=== PATIENT | male | born 1935 | race Caucasian/White ===

== ENCOUNTER 2020-07-20 10:24 | Emergency (ER) | payer MEDICARE, BC ==
[2020-07-20] MEDS ORDERED: Sodium Chloride 0.9% 10 ML Syringe FLUSH PRN (10:29)
[2020-07-20] MEDS ORDERED: Labetalol 100 MG/20 ML MDV IVPUSH ONE (10:59)
--- NOTE | 2020-07-20 11:15 | EDM.PDOC ---
ED HPI GENERAL MEDICAL PROBLEM - General Chief Complaint: Neuro Symptoms/Deficits Stated Complaint: [facility] Time Seen by Provider: 07/20/20 10:29 Source of Information: Reports: Patient, EMS, Family History Limitations: Reports: Altered Mental Status - History of Present Illness INITIAL COMMENTS - FREE TEXT/NARRATIVE: The patient presents by [facility] for a possible stroke. The patient's last time known well was last night at 9pm. This morning he did not get up on time and his thought he was sleeping in and went to check on him after 9am and found him sitting on the floor. He may have fallen. He was confused and leaning to the left. He has left sided weakness. He is on aspirin but no other blood thinners. He has a history of Parkinson's disease. He has moderated left sided weakness and he is confused. He can talk but he is confused. He has no fever, cough or shortness of breath. Onset: Gradual Duration: Day(s): (last night at 9pm) Severity: Moderate Improves with: Reports: None Worsens with: Reports: None Associated Symptoms: Reports: No Other Symptoms Treatments BEATER BOSS: Reports: IV/IO, See EMS Report - Related Data Allergies Allergy/AdvReac Type Severity Reaction Status Date / Time No Known Allergies Allergy Verified 07/20/20 10:38 Home Meds: Home Meds Cholecalciferol (Vitamin D3) [Vitamin D3] 2,000 unit PO DAILY 03/29/14 [History] Lisinopril 5 mg PO DAILY 03/29/14 [History] Pantoprazole [ProTONIX] 40 mg PO DAILY 03/29/14 [History] Simvastatin [Zocor] 40 mg PO BEDTIME 03/29/14 [History] Metoprolol Succinate [Toprol XL 100mg] 75 mg PO BID 04/18/14 [History] Tamsulosin [Flomax] 0.4 mg PO BEDTIME 05/04/14 [History] Carbidopa/Levodopa [Sinemet 25-100 mg Tablet] 1 each PO BID 10/10/16 [History] Citalopram [Celexa] 20 mg PO 1200 10/10/16 [History] Donepezil [Aricept] 10 mg PO BEDTIME 10/10/16 [History] Bisacodyl [Dulcolax] 5 mg PO DAILY PRN #0 tablet 10/15/16 [Rx] Docusate Sodium/Sennosides [Senna Plus] 1 tab PO BID PRN #30 tablet 10/15/16 [Rx] Polyethylene Glycol 3350 [MiraLAX] 17 gm PO DAILY PRN #0 packet 10/15/16 [Rx] Acetaminophen [Tylenol] 650 mg PO Q6H PRN #0 10/17/16 [Rx] Acetaminophen/HYDROcodone [Morrison 325-5 MG] 1 - 2 tab PO Q6H PRN #40 tablet 10/17/16 [Rx] Enoxaparin Sodium [Lovenox] 40 mg SQ DAILY #14 ml 10/17/16 [Rx] HCTZ/Triamterene [Maxzide 25-37.5 MG] 1 tab PO DAILY 10/28/16 [History] Past Medical History HEENT History: Reports: Impaired Vision Other HEENT History: Wears glasses. Has ringing in ears on and off. 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 Neurological History: Reports: Parkinson's Psychiatric History: Reports: Dementia Endocrine/Metabolic History: Reports: Diabetes, Type II Hematologic History: Reports: None Immunologic History: Reports: None Oncologic (Cancer) History: Reports: None Dermatologic History: Reports: None - Past Surgical History HEENT Surgical History: Reports: Other (See Below) Cardiovascular Surgical History: Reports: Coronary Artery Bypass, Pacer GI Surgical History: Reports: Hernia, Abdominal Musculoskeletal Surgical History: Reports: ORIF Other Musculoskeletal Surgeries/Procedures:: Left elbow Social & Family History - Family History Family Medical History: Noncontributory - Tobacco Use Tobacco Use Status *Q: Current Status Unknown - Caffeine Use Caffeine Use: Reports: None - Recreational Drug Use Recreational Drug Use: No ED ROS GENERAL - Review of Systems Review Of Systems: See Below Constitutional: Reports: No Symptoms HEENT: Reports: No Symptoms Respiratory: Reports: No Symptoms Cardiovascular: Reports: No Symptoms Endocrine: Reports: No Symptoms GI/Abdominal: Reports: No Symptoms : Reports: No Symptoms Musculoskeletal: Reports: No Symptoms Skin: Reports: No Symptoms ED EXAM, NEURO - Physical Exam Exam: See Below Exam Limited By: No Limitations General Appearance: Alert, No Apparent Distress Ears: Normal External Exam Nose: Normal Inspection Head Exam: Atraumatic, Normocephalic Neck: Normal Inspection Respiratory/Chest: No Respiratory Distress, Lungs Clear, Normal Breath Sounds Cardiovascular: Regular Rate, Rhythm, No Edema, No Murmur Neurological: Alert, Other (Moderate left arm and leg weakness) #1 Interpretation EKG Date: 07/20/20 Time: 10:35 Rhythm: Other (atrial ventricular paced rhythm) Rate (Beats/Min): 67 Course - Vital Signs Last Recorded V/S: Last Vital Signs Temp 98.0 F 07/20/20 10:33 Pulse 73 07/20/20 10:33 Resp 13 07/20/20 10:33 BP 156/103 H 07/20/20 10:33 Pulse Ox 100 07/20/20 10:33 - Orders/Labs/Meds Orders: Active Orders 24 hr Category Date Time Status Cardiac Monitoring [RC] . DIRECTED Care 07/20/20 10:29 Active EKG Documentation Completion [RC] STAT Care 07/20/20 10:29 Active Oxygen Therapy [RC] PRN Care 07/20/20 10:29 Active Peripheral IV Care [RC] . DIRECTED Care 07/20/20 10:30 Active Head wo Cont [CT] Stat Exams 07/20/20 10:30 Taken Sodium Chloride 0.9% [Saline Flush] Med 07/20/20 10:29 Active 10 ml FLUSH ASDIRECTED PRN Peripheral IV Insertion Adult [OM.PC] Stat Oth 07/20/20 10:29 Ordered Medication Orders Sodium Chloride (Saline Flush) 10 ml FLUSH ASDIRECTED PRN PRN Reason: Keep Vein Open Labs: Laboratory Tests 07/20/20 07/20/20 07/20/20 Range/Units 10:50 10:53 10:53 WBC 7.31 (4.23-9.07) K/mm3 RBC 4.68 (4.63-6.08) M/mm3 Hgb 14.5 (13.7-17.5) gm/dl Hct 44.0 (40.1-51.0) % MCV 94.0 H (79.0-92.2) fl MCH 31.0 (25.7-32.2) pg MCHC 33.0 (32.2-35.5) g/dl RDW Std Deviation 45.4 H (35.1-43.9) fL Plt Count 168 D (163-337) K/mm3 MPV 9.8 (9.4-12.3) fl Neut % (Auto) 76.1 H (34.0-67.9) % Lymph % (Auto) 13.8 L (21.8-53.1) % [place] % (Auto) 8.9 (5.3-12.2) % Eos % (Auto) 0.8 (0.8-7.0) Baso % (Auto) 0.3 (0.1-1.2) % Neut # (Auto) 5.56 H (1.78-5.38) K/mm3 Lymph # (Auto) 1.01 L (1.32-3.57) K/mm3 [place] # (Auto) 0.65 (0.30-0.82) K/mm3 Eos # (Auto) 0.06 (0.04-0.54) K/mm3 Baso # (Auto) 0.02 (0.01-0.08) K/mm3 Manual Slide Review Not Reportable PT 12.2 H (9.7-12.0) SECONDS INR 1.14 APTT 25.1 (21.7-31.4) SECONDS Sodium (136-145) mEq/L Potassium (3.5-5.1) mEq/L Chloride (98-107) mEq/L Carbon Dioxide (21-32) mEq/L Anion Gap (5-15) BUN (7-18) mg/dL Creatinine (0.7-1.3) mg/dL Est Cr Clr Drug Dosing mL/min Estimated GFR (MDRD) (>60) mL/min BUN/Creatinine Ratio (14-18) Glucose (83-115) mg/dL Calcium (8.5-10.1) mg/dL Total Bilirubin (0.2-1.0) mg/dL AST (15-37) U/L ALT (16-63) U/L Alkaline Phosphatase (46-116) U/L Troponin I (0.00-0.056) ng/mL Total Protein (6.4-8.2) g/dl Albumin (3.4-5.0) g/dl Globulin gm/dL Albumin/Globulin Ratio (1-2) SARS-CoV-2 RNA (RICHI) Negative (NEGATIVE) 07/20/20 Range/Units 10:53 WBC (4.23-9.07) K/mm3 RBC (4.63-6.08) M/mm3 Hgb (13.7-17.5) gm/dl Hct (40.1-51.0) % MCV (79.0-92.2) fl MCH (25.7-32.2) pg MCHC (32.2-35.5) g/dl RDW Std Deviation (35.1-43.9) fL Plt Count (163-337) K/mm3 MPV (9.4-12.3) fl Neut % (Auto) (34.0-67.9) % Lymph % (Auto) (21.8-53.1) % [place] % (Auto) (5.3-12.2) % Eos % (Auto) (0.8-7.0) Baso % (Auto) (0.1-1.2) % Neut # (Auto) (1.78-5.38) K/mm3 Lymph # (Auto) (1.32-3.57) K/mm3 [place] # (Auto) (0.30-0.82) K/mm3 Eos # (Auto) (0.04-0.54) K/mm3 Baso # (Auto) (0.01-0.08) K/mm3 Manual Slide Review PT (9.7-12.0) SECONDS INR APTT (21.7-31.4) SECONDS Sodium 140 (136-145) mEq/L Potassium 3.5 (3.5-5.1) mEq/L Chloride 104 (98-107) mEq/L Carbon Dioxide 28 (21-32) mEq/L Anion Gap 11.5 (5-15) BUN 19 H (7-18) mg/dL Creatinine 1.0 (0.7-1.3) mg/dL Est Cr Clr Drug Dosing 56.95 mL/min Estimated GFR (MDRD) > 60 (>60) mL/min BUN/Creatinine Ratio 19.0 H (14-18) Glucose 137 H (83-115) mg/dL Calcium 8.5 (8.5-10.1) mg/dL Total Bilirubin 0.8 (0.2-1.0) mg/dL AST 18 (15-37) U/L ALT 31 (16-63) U/L Alkaline Phosphatase 56 (46-116) U/L Troponin I < 0.017 (0.00-0.056) ng/mL Total Protein 6.4 (6.4-8.2) g/dl Albumin 3.2 L (3.4-5.0) g/dl Globulin 3.2 gm/dL Albumin/Globulin Ratio 1.0 (1-2) SARS-CoV-2 RNA (RICHI) (NEGATIVE) Meds: Medications Generic Name Dose Route Start Last Admin Trade Name Freq PRN Reason Stop Dose Admin Sodium Chloride 10 ml 07/20/20 10:29 Saline Flush FLUSH ASDIRECTED PRN Keep Vein Open Discontinued Medications Generic Name Dose Route Start Last Admin Trade Name Freq PRN Reason Stop Dose Admin Labetalol HCl 20 mg 07/20/20 10:59 Normodyne IVPUSH 07/20/20 11:00 ONETIME ONE Protocol - Re-Assessments/Exams Free Text/Narrative Re-Assessment/Exam: 07/20/20 11:17 A stroke alert was called. I met the patient at the ER entrance and EMS took him right to the CT scanner. His last time known well was 9pm last night. He is on aspirin but no other blood thinners. I ordered CT of his head, EKG and labs. His CT shows an acute hemorrhage centered in right deep jernigan nuclei and internal capsule. Location suggestive hypertensive hemorrhage and correlate clinically. His EKG shows AV paced rhythm. 07/20/20 11:44 His CBC, CMP, PT, and PTT look good. I called [facility] and talked with the neurosurgeon Dr Kahn and he said this was a hypertensive bleed and he does not need to operate on it. He recommends rehab and blood pressure control. I called Dr Miller our hospitalist and he did not feel comfortable keeping him here. I am waiting on COVID 19 test to call them back because they have no COVID beds. 07/20/20 12:20 His COVID 19 test is negative. I have called [facility] in [place] and talked to the hospitalist oracle drm consultant Dr Barnett and she accepted the patient. 07/20/20 12:27 I updated his and she said he is DNR/DNI. Departure - Departure Time of Disposition: 12:30 Disposition: DC/Tfer to Acute Hospital 02 Condition: Serious Clinical Impression: Intracranial bleed, DNR (do not resuscitate), DNI (do not intubate) Hypertension Qualifiers: Hypertension type: essential hypertension Qualified Code(s): I10 - Essential (primary) hypertension - Discharge Information Forms: ED Department Discharge Sepsis Event Note (ED) - Evaluation Sepsis Screening Result: No Definite Risk - Focused Exam Vital Signs: Vital Signs Temp Pulse Resp BP Pulse Ox 07/20/20 10:33 98.0 F 73 13 156/103 H 100 - My Orders Last 24 Hours: My Active Orders 07/20/20 10:29 Cardiac Monitoring [RC] . DIRECTED EKG Documentation Completion [RC] STAT Oxygen Therapy [RC] PRN Sodium Chloride 0.9% [Saline Flush] 10 ml FLUSH ASDIRECTED PRN Peripheral IV Insertion Adult [OM.PC] Stat 07/20/20 10:30 Peripheral IV Care [RC] . DIRECTED Head wo Cont [CT] Stat - Assessment/Plan Last 24 Hours: My Active Orders 07/20/20 10:29 Cardiac Monitoring [RC] . DIRECTED EKG Documentation Completion [RC] STAT Oxygen Therapy [RC] PRN Sodium Chloride 0.9% [Saline Flush] 10 ml FLUSH ASDIRECTED PRN Peripheral IV Insertion Adult [OM.PC] Stat 07/20/20 10:30 Peripheral IV Care [RC] . DIRECTED Head wo Cont [CT] Stat
[2020-07-20 12:51] VITALS: BP 167/82; PULSE 64
--- NOTE | 2020-07-20 14:24 | CT ---
"Addendum created by Cecille Cobb MD on 07/20/2020 11:59 AM Central Time ([place] & [place]): Correction: Hemorrhage measures 1.8 x 2.4 x 1.6 cm. Critical results: THIS REPORT CONTAINS FINDINGS THAT MAY BE CRITICAL / URGENT (stroke protocol) TO PATIENT CARE. The findings were verbally communicated via telephone conference with ALEXANDREA HA at 11:59 AM CDT on 07/20/2020. The findings were acknowledged and understood. Initial Report created on 07/20/2020 11:46 AM Central Time ([place] & [place]): PROCEDURE INFORMATION: Exam: CT Head Without Contrast Exam date and time: 07/20/2020 10:21 AM Age: 84 years old Clinical indication: Other: CVA TECHNIQUE: Imaging protocol: Computed tomography of the head without contrast. Radiation optimization: All CT scans at this facility use at least one of these dose optimization techniques: automated exposure control; mA and/or kV adjustment per patient size (includes targeted exams where dose is matched to clinical indication); or iterative reconstruction. Other technique: STROKE PROTOCOL was implemented. COMPARISON: No relevant prior studies available. FINDINGS: Brain: There is acute hemorrhage centered in right lentiform nucleus and posterior limb of internal capsule extending into lateral thalamus measuring 1.8 cm x 2.4 cm x 1 point cm in maximum dimensions. There is mild surrounding edema. There is no significant midline shift. There is no intraventricular extension of hemorrhage. There is lucency in the cerebral white matter, likely microvascular disease although non-specific. Locke white differentiation is intact. There are no extraaxial fluid collections. No evidence of mass. There is no mass effect or midline shift. SAMANTHA CRAWFORD | Final Radiology Report CONFIDENTIALITY STATEMENT This report is intended only for use by the referring physician, and only in accordance with law. If you received this in error, call [phone]. Page 2 of 2 Cerebral ventricles: The ventricles and sulci are enlarged, consistent with volume loss / atrophy. No hydrocephalus. Bones/joints: No acute fracture. Paranasal sinuses: Visualized sinuses are unremarkable. No fluid levels. Mastoid air cells: No significant mastoid effusion. Orbital cavity: There have been bilateral intraocular lens replacements likely related to cataract surgery. Vasculature: There is vascular calcification. Soft tissues: Unremarkable as visualized. IMPRESSION: Acute hemorrhage centered in right deep locke nuclei and internal capsule as described. Location suggestive hypertensive hemorrhage and correlate clinically. ASSESSMENT: ASPECTS ([place] Stroke Program Early CT Score) is 10. Thank you for allowing us to participate in the care of your patient. Dictated and Authenticated by: Cecille Cobb MD 07/20/2020 11:46 AM Central Time ([place] & [place]) MICKEY"
== END 2020-07-20 13:00 ==
LOC: JD.ED 10:24
DX: I62.9 Nontraumatic intracranial hemorrhage, unspecified (principal); I10 Essential (primary) hypertension; G20 Parkinson's disease; F02.80 Dementia in other diseases classified elsewhere, unspecified severity, without behavioral disturbance, psychotic disturbance, mood disturbance, and anxiety; N42.9 Disorder of prostate, unspecified; E11.9 Type 2 diabetes mellitus without complications; Z79.899 Other long term (current) drug therapy; Z66 Do not resuscitate; Z20.828 Contact with and (suspected) exposure to other viral communicable diseases; Z79.82 Long term (current) use of aspirin; Z79.01 Long term (current) use of anticoagulants
CPT/HCPCS: 36415; 70450; 80053; 84484; 85025; 85610; 85730; 93005; 96374; 99285; J3490; U0002; 93010

== ENCOUNTER 2020-09-07 00:49 | Emergency (ER) | payer MEDICARE, BC ==
--- NOTE | 2020-09-07 01:13 | EDM.PDOC ---
ED HPI GENERAL MEDICAL PROBLEM - General Chief Complaint: Upper Extremity Injury/Pain Stated Complaint: [facility] Time Seen by Provider: 09/07/20 00:57 Source of Information: Reports: Detention Records History Limitations: Reports: Physical Impairment (Patient has dementia and is unable to provide any history) - History of Present Illness INITIAL COMMENTS - FREE TEXT/NARRATIVE: Mr. Daniels is a pleasantly demented 85-year-old gentleman who is now brought to the ED by EMS [facility] after he suffered an unwitnessed fall around 6 AM yesterday morning, 09/06/2020. He was found to have suffered a contusion about his left eye at that time, however, he began complaining of pain to his left wrist tonight, and was found to have a fever of 100.1 degrees. Tylenol was given prior to EMS bringing him to the ED. Paperwork sent from [facility] indicates that he is not on an anticoagulant. Here in the ED, the patient is found to be hemodynamically stable, afebrile, saturating 97% on room air. Due to the patient's dementia, we are unable to ascertain his recent review of systems. The patient's PCP is Dr. Annemarie Baugh. It is not known if he has received an influenza vaccine this season. Treatments CASEWORK SPECIALIST: Reports: Acetaminophen Left Lower Arm Pain Score (Numeric/FACES): 10 - Related Data Allergies Allergy/AdvReac Type Severity Reaction Status Date / Time No Known Allergies Allergy Verified 07/20/20 10:38 Home Meds: Home Meds Pantoprazole [ProTONIX] 40 mg PO DAILY 03/29/14 [History] Tamsulosin [Flomax] 0.4 mg PO BEDTIME 05/04/14 [History] Carbidopa/Levodopa [Sinemet 25-100 mg Tablet] 1 each PO BID 10/10/16 [History] Citalopram [Celexa] 20 mg PO 1200 10/10/16 [History] Donepezil [Aricept] 10 mg PO BEDTIME 10/10/16 [History] Bisacodyl [Dulcolax] 5 mg PO DAILY PRN #0 tablet 10/15/16 [Rx] Acetaminophen [Tylenol] 650 mg PO Q6H PRN #0 10/17/16 [Rx] Carbidopa/Levodopa [Carbidopa-Levodopa 25-100] 0.5 tab PO ACDINNER 09/07/20 [History] Cholecalciferol (Vitamin D3) [Vitamin D3] 1,000 unit PO DAILY 09/07/20 [History] Metoprolol Tartrate 25 mg PO BID 09/07/20 [History] atorvaSTATin [Lipitor] 40 mg PO BEDTIME 09/07/20 [History] metFORMIN [Glucophage] 250 mg PO DAILY 09/07/20 [History] Past Medical History HEENT History: Reports: Impaired Vision (wears glasses) Cardiovascular History: Reports: High Cholesterol, Hypertension Gastrointestinal History: Reports: GERD Genitourinary History: Reports: BPH Neurological History: Reports: Alzheimers Disease, CVA (left hemiparesis), Parkinson's Endocrine/Metabolic History: Reports: Diabetes, Type II - Past Surgical History Cardiovascular Surgical History: Reports: Coronary Artery Bypass, Pacer GI Surgical History: Reports: Hernia, Abdominal Musculoskeletal Surgical History: Reports: ORIF (left elbow) Social & Family History - Living Situation & Occupation Living situation: Reports: Extended Care Facility ([facility]) Occupation: Retired Review of Systems - Review of Systems Review Of Systems: Unable To Obtain Reason Not Obtained: Patient has dementia ED EXAM, GENERAL - Physical Exam Exam: See Below Exam Limited By: Other (The patient does not follow commands) General Appearance: Mild Distress (squeezing eyes shut), Thin Eye Exam: Left Eye: Periorbital Changes (mild contusion about left eye), Bilateral Eye: EOMI Ears: Normal External Exam Nose: Normal Inspection Throat/Mouth: Normal Inspection, Normal Lips, No Airway Compromise Head: Atraumatic, Normocephalic Neck: Normal Inspection, Full Range of Motion Respiratory/Chest: No Respiratory Distress, Lungs Clear, Normal Breath Sounds, No Accessory Muscle Use Cardiovascular: Normal Peripheral Pulses, Regular Rate, Rhythm, No Edema, No Gallop, No JVD, No Murmur, No Rub Peripheral Pulses: 3+: Radial (L), Radial (R) GI/Abdominal: Normal Bowel Sounds, Soft, Non-Tender, No Organomegaly, No Distention, No Abnormal Bruit, No Mass Back Exam: Normal Inspection, Full Range of Motion, NT Extremities: No Pedal Edema, Normal Capillary Refill, Other (No visible abnormality/deformity to the left wrist, however, there is considerable tenderness to palpation. Neurovascular status of the left upper extremity appears to be intact.) Neurological: Other (Neurologic examination unable to be performed, as the patient did not follow any commands) Skin Exam: Warm (feels febrile), Dry, Intact, Normal Color, No Rash ED TRAUMA EXTREMITY PROCEDURES - Splinting Left Upper Extremity Splint Site: Left wrist Pre-Procedure NV Status: Normal Post-Procedure NV Status: Normal Splint Material: Fiberglass Splint Design: Gutter (ulnar) Applied & Form Fitted By: Provider Provider Post-Splint Application NV Check: NV Status Normal, Good Position Complications: No Course - Vital Signs Last Recorded V/S: Last Vital Signs Temp 37.1 C 09/07/20 00:50 Pulse 87 09/07/20 00:50 Resp 16 09/07/20 00:50 BP 140/66 09/07/20 00:50 Pulse Ox 97 09/07/20 00:50 - Orders/Labs/Meds Orders: Active Orders 24 hr Category Date Time Status Chest 1V Frontal [CR] Stat Exams 09/07/20 01:06 Taken Head wo Cont [CT] Stat Exams 09/07/20 01:05 Taken Wrist Comp Min 3V Lt [CR] Stat Exams 09/07/20 01:05 Ordered CULTURE BLOOD [BC] Stat Lab 09/07/20 01:25 Received CULTURE BLOOD [BC] Stat Lab 09/07/20 01:30 Received Sodium Chloride 0.9% [Normal Saline] 1,000 ml Med 09/07/20 01:15 Active IV ASDIRECTED Blood Culture x2 Reflex Set [OM.PC] Stat Oth 09/07/20 01:08 Ordered Isolation [COMM] Routine Oth 09/07/20 01:08 Ordered Medication Orders Sodium Chloride (Normal Saline) 1,000 mls @ 100 mls/hr IV ASDIRECTED RADHA Last Admin: 09/07/20 01:26 Dose: 100 mls/hr Documented by: YANELIS Labs: Laboratory Tests 09/07/20 09/07/20 09/07/20 Range/Units 01:15 01:25 01:25 WBC 11.14 H (4.23-9.07) K/mm3 RBC 4.17 L (4.63-6.08) M/mm3 Hgb 13.1 L (13.7-17.5) gm/dl Hct 39.1 L (40.1-51.0) % MCV 93.8 H (79.0-92.2) fl MCH 31.4 (25.7-32.2) pg MCHC 33.5 (32.2-35.5) g/dl RDW Std Deviation 46.9 H (35.1-43.9) fL Plt Count 205 (163-337) K/mm3 MPV 9.7 (9.4-12.3) fl Neutrophils % (Manual) 74 H (40-60) % Band Neutrophils % 0 (0-10) % Lymphocytes % (Manual) 16 L (20-40) % Atypical Lymphs % 0 % Monocytes % (Manual) 10 (2-10) % Eosinophils % (Manual) 0 L (0.8-7.0) % Basophils % (Manual) 0 L (0.2-1.2) Platelet Estimate Adequate RBC Morph Comment Normal Sodium 137 (136-145) mEq/L Potassium 3.7 (3.5-5.1) mEq/L Chloride 102 (98-107) mEq/L Carbon Dioxide 27 (21-32) mEq/L Anion Gap 11.7 (5-15) BUN 23 H (7-18) mg/dL Creatinine 1.2 (0.7-1.3) mg/dL Est Cr Clr Drug Dosing 35.31 mL/min Estimated GFR (MDRD) 58 (>60) mL/min BUN/Creatinine Ratio 19.2 H (14-18) Glucose 197 H (83-115) mg/dL Lactic Acid (0.4-2.0) mmol/L Calcium 8.6 (8.5-10.1) mg/dL Magnesium 1.9 (1.8-2.4) mg/dl Total Bilirubin 0.5 (0.2-1.0) mg/dL AST 16 (15-37) U/L ALT 36 (16-63) U/L Alkaline Phosphatase 101 (46-116) U/L Total Protein 6.7 (6.4-8.2) g/dl Albumin 3.1 L (3.4-5.0) g/dl Globulin 3.6 gm/dL Albumin/Globulin Ratio 0.9 L (1-2) SARS-CoV-2 RNA (RICHI) Negative (NEGATIVE) 09/07/20 Range/Units 01:25 WBC (4.23-9.07) K/mm3 RBC (4.63-6.08) M/mm3 Hgb (13.7-17.5) gm/dl Hct (40.1-51.0) % MCV (79.0-92.2) fl MCH (25.7-32.2) pg MCHC (32.2-35.5) g/dl RDW Std Deviation (35.1-43.9) fL Plt Count (163-337) K/mm3 MPV (9.4-12.3) fl Neutrophils % (Manual) (40-60) % Band Neutrophils % (0-10) % Lymphocytes % (Manual) (20-40) % Atypical Lymphs % % Monocytes % (Manual) (2-10) % Eosinophils % (Manual) (0.8-7.0) % Basophils % (Manual) (0.2-1.2) Platelet Estimate RBC Morph Comment Sodium (136-145) mEq/L Potassium (3.5-5.1) mEq/L Chloride (98-107) mEq/L Carbon Dioxide (21-32) mEq/L Anion Gap (5-15) BUN (7-18) mg/dL Creatinine (0.7-1.3) mg/dL Est Cr Clr Drug Dosing mL/min Estimated GFR (MDRD) (>60) mL/min BUN/Creatinine Ratio (14-18) Glucose (83-115) mg/dL Lactic Acid 1.8 (0.4-2.0) mmol/L Calcium (8.5-10.1) mg/dL Magnesium (1.8-2.4) mg/dl Total Bilirubin (0.2-1.0) mg/dL AST (15-37) U/L ALT (16-63) U/L Alkaline Phosphatase (46-116) U/L Total Protein (6.4-8.2) g/dl Albumin (3.4-5.0) g/dl Globulin gm/dL Albumin/Globulin Ratio (1-2) SARS-CoV-2 RNA (RICHI) (NEGATIVE) Meds: Medications Generic Name Dose Route Start Last Admin Trade Name Freq PRN Reason Stop Dose Admin Sodium Chloride 1,000 mls @ 100 mls/hr 09/07/20 01:15 12/17/20 01:26 Normal Saline IV 100 mls/hr ASDIRECTED [facility] Administration - Re-Assessments/Exams Free Text/Narrative Re-Assessment/Exam: 09/07/20 01:09 As above, the patient had suffered an unwitnessed fall yesterday morning, 09/06/2020, suffering a contusion above his left eye, but complained of pain to his left wrist only tonight. He was also found to have a fever, which was treated with acetaminophen at the half-way prior to EMS bringing him here. Here he is afebrile, clenching his eyes tight. He does not speak, but he does wince in pain when his left wrist is palpated. No visible deformity to his left wrist. I have ordered a work-up that includes a CT of the head without contrast, and x-rays of his left wrist, along with a portable chest x- ray, several blood tests, 2 sets of blood cultures, a urinalysis, and influenza swab, and a swab for the SARS-CoV-2 virus. 09/07/20 01:32 Notified by Camille VASQUES that she met resistance when she attempted to straight cath the patient, and got only blood out. Notified by the pie bakery laborer that the patient's urine sample is too bloody to run a urinalysis. 09/07/20 02:13 Portable chest radiograph reviewed. The cardiac silhouette is within normal limits. No pulmonary vascular congestion. No pleural effusions seen on this AP view. No focal infiltrate. No pneumothorax. A 2-chamber left-sided pacemaker is noted. Sternotomy wires noted. Formal read per the Radiologist pending. 4-view radiographs of the left wrist appear to demonstrate a nondisplaced fracture of the ulnar styloid. No other fractures or dislocations identified. Formal read per the Radiologist pending. The patient's CBC is remarkable for leukocytosis of 11.19, but with 0% bandemia. He has very slight anemia with an H/H depressed at 13.1/39.1, and the remainder of his CBC being unremarkable. His CMP is remarkable for a BUN slightly elevated 23, but with a Cr normal at 1.2. He has hyperglycemia of 197, with the remainder of his CMP being unremarkable. His magnesium level and lactic acid level are both within normal limits. His influenza swab and swab for the SARS-CoV-2 virus are both negative. 09/07/20 02:32 Based on the above, I placed an ulnar gutter splint on the patient's left upper extremity, extending from the MCPs to just above the elbow, with the elbow flexed at 90 degrees in the hand and a "thumbs up" position. The patient tolerated the procedure well. 09/07/20 02:41 CT of the head without contrast is read by [facility] as: 1. Central and cortical atrophy consistent with age. 2. No CT evidence of acute infarction, intracranial hemorrhage or mass. I will discharge the patient home with a referral to Dr. Soares. Departure - Departure Time of Disposition: 02:42 Disposition: Home, Self-Care 01 Condition: Good Clinical Impression: Fall at half-way, Nondisplaced fracture of left ulna styloid process, initial encounter for closed fracture, Facial contusion - Discharge Information *PRESCRIPTION DRUG MONITORING PROGRAM REVIEWED*: Not Applicable *COPY OF PRESCRIPTION DRUG MONITORING REPORT IN PATIENT [place]: Not Applicable Referrals: Annemarie Baugh MD [Primary Care Provider] - Forms: ED Department Discharge Additional Instructions: Mr. Daniels was seen in the emergency room for left wrist pain after falling Friday. Work-up in the ER included several blood tests, 2 sets of blood cultures, an influenza swab, a swab for the SARS-CoV-2 virus, a chest x-ray, x-rays of the left wrist, and a CT of the head without contrast. X-rays of his left wrist suggest an ulnar styloid fracture. His left arm was therefore placed into a splint. The remainder of his work-up was unremarkable. We recommend that Mr. Daniels although up with the orthopedic surgeon Dr. Dontrell Soares at the next available appointment. He may be given [id number] Tylenol or ibuprofen as needed for discomfort. If any other problems, please do not hesitate to return Mr. Daniels to the ER. Sepsis Event Note (ED) - Evaluation Sepsis Screening Result: No Definite Risk - Focused Exam Vital Signs: Vital Signs Temp Pulse Resp BP Pulse Ox 09/07/20 00:50 37.1 C 87 16 140/66 97 - My Orders Last 24 Hours: My Active Orders 09/07/20 01:05 Head wo Cont [CT] Stat Wrist Comp Min 3V Lt [CR] Stat 09/07/20 01:06 Chest 1V Frontal [CR] Stat 09/07/20 01:08 Blood Culture x2 Reflex Set [OM.PC] Stat Isolation [COMM] Routine 09/07/20 01:15 Sodium Chloride 0.9% [Normal Saline] 1,000 ml IV ASDIRECTED 09/07/20 01:25 CULTURE BLOOD [BC] Stat 09/07/20 01:30 CULTURE BLOOD [BC] Stat - Assessment/Plan Last 24 Hours: My Active Orders 09/07/20 01:05 Head wo Cont [CT] Stat Wrist Comp Min 3V Lt [CR] Stat 09/07/20 01:06 Chest 1V Frontal [CR] Stat 09/07/20 01:08 Blood Culture x2 Reflex Set [OM.PC] Stat Isolation [COMM] Routine 09/07/20 01:15 Sodium Chloride 0.9% [Normal Saline] 1,000 ml IV ASDIRECTED 09/07/20 01:25 CULTURE BLOOD [BC] Stat 09/07/20 01:30 CULTURE BLOOD [BC] Stat
[2020-09-07] MEDS ORDERED: Sodium Chloride 0.9% 1,000 ML IV SCH (01:15)
[2020-09-07 03:17] VITALS: BP 112/75; PULSE 88
--- NOTE | 2020-09-07 09:11 | CT ---
Head CT Technique: Multiple axial sections through the brain were obtained. Comparison: No prior intracranial imaging is available. Findings: Ventricles along with basal cisterns and sulci over the convexities are mildly prominent. Scattered areas of diminished density are noted within the periventricular and subcortical white matter which have the appearance of small vessel ischemic demyelination change. Additional low-density area is seen within the basal ganglia likely due to old lacunar infarcts and additional small vessel ischemic demyelination change. No evidence of intracranial hemorrhage. No midline shift or mass-effect is seen. Diffuse atherosclerotic calcification is seen within the vertebral vessels and within the carotid siphon. Bone window settings were reviewed which shows the visualized paranasal sinuses and mastoid sinuses to show nothing acute. No acute calvarial finding is appreciated. Impression: 1. Senescent change as noted above. 2. No definite acute intracranial abnormality is appreciated. 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
--- NOTE | 2020-09-07 09:25 | CR ---
Chest: Frontal view of the chest was obtained. Comparison: Prior chest x-ray of 04/04/14. Heart size and mediastinum appear within normal limits. Minimal densities are seen within both lung bases. Central lung markings are also slightly increased. These markings are most likely relating to less than optimal inspiratory effort. Previous sternotomy is noted. Bichamber pacemaker is seen. No acute osseous finding is appreciated. Impression: 1. Slight areas of atelectasis within both lung bases, difficult to exclude right-sided lower lobe pneumonia if patient has symptoms. 2. Other findings as noted above believed to be chronic. Diagnostic code #3
--- NOTE | 2020-09-07 17:59 | CR ---
Left wrist: 4 views of the left wrist were obtained. Comparison: No prior studies available. Findings: Small fracture is identified off the ulnar styloid process. Very slight cortical irregularity is noted within the posterior radius compatible with additional fracture. Soft tissue swelling is noted. Bony structures are osteopenic. No additional abnormality is appreciated. Impression: 1. Minimal fractures as noted above. 2. Other incidental findings. Diagnostic code #3
== END 2020-09-07 03:15 | disposition home or self-care (01) ==
LOC: JD.ED 00:49
DX: S52.615A Nondisplaced fracture of left ulna styloid process, initial encounter for closed fracture (principal); S00.83XA Contusion of other part of head, initial encounter; E78.00 Pure hypercholesterolemia, unspecified; I10 Essential (primary) hypertension; K21.9 Gastro-esophageal reflux disease without esophagitis; N40.0 Benign prostatic hyperplasia without lower urinary tract symptoms; E11.9 Type 2 diabetes mellitus without complications; Z79.84 Long term (current) use of oral hypoglycemic drugs; Z79.899 Other long term (current) drug therapy; G30.9 Alzheimer's disease, unspecified; F02.80 Dementia in other diseases classified elsewhere, unspecified severity, without behavioral disturbance, psychotic disturbance, mood disturbance, and anxiety; Z86.73 Personal history of transient ischemic attack (TIA), and cerebral infarction without residual deficits; Z20.828 Contact with and (suspected) exposure to other viral communicable diseases; W19.XXXA Unspecified fall, initial encounter; Y92.129 Unspecified place in nursing home as the place of occurrence of the external cause
CPT/HCPCS: 29105; 29125; 36415; 70450; 70450-26; 71045; 71045-26; 73110-26-LT; 73110-LT; 80053; 83605; 83735; 85007; 85027; 87040; 87804; 99283; 99284-25; J7030; U0002

== ENCOUNTER 2020-09-07 06:23 | Inpatient (IN) | payer MEDICARE, BC ==
[2020-09-07] MEDS ORDERED: Acetaminophen 650 MG Supp RECTAL ONE (07:01)
[2020-09-07] MEDS ORDERED: cefTRIAXone 2 GM in Sodium Chloride 0.9% 100 ML IV ONE (07:04)
--- NOTE | 2020-09-07 07:07 | EDM.PDOC ---
ED HPI GENERAL MEDICAL PROBLEM - General Chief Complaint: Genitourinary Problem Stated Complaint: [facility] Time Seen by Provider: 09/07/20 07:01 Source of Information: Reports: Intermediate Records History Limitations: Reports: Altered Mental Status - History of Present Illness INITIAL COMMENTS - FREE TEXT/NARRATIVE: 85-year-old gentleman [facility] ED from local [facility] due to gross hematuria and persistent fever. Of note the patient was seen through the ED shortly before 0100 hrs. this morning due to a fall earlier in the day but then developed a fever. Complete work-up was carried out and identified a minimal fracture of the left ulnar styloid process on x-ray. Chest x-ray on my review suggest possible right perihilar infiltrate suggesting possible pneumonia. He was Covid negative and influenza negative on screening. He had had a fever apparently the [facility] had received Tylenol prior to coming to the ED and had no fever reported in the ED. Lab work was apparently unremarkable. Attempts to catheterize him last night failed and did cause some bleeding per urethra and this was explained to the [facility] staff nurses that he would bleed with voiding for the next time or 2. He is not on blood thinners. A urinalysis was never obtained. Patient apparently is incontinent and wears depends. This morning bladder scan is showing no evidence of urine in the bladder. Patient has severe dementia and therefore is unable to answer any questions. He is extremely warm to palpation I I would bet greater than 103.5 degrees. He has some contusions left lateral periorbital area with superficial laceration taped back together with Steri-Strips. O2 sats are 95% on room air. His CODE STATUS is DO NOT RESUSCITATE .DO NOT INTUBATE. Reviewing Dr. Bernabe's notes he apparently suffered an unwitnessed fall around 0600 hrs. yesterday morning. This was September 06. He was found to have suffered a contusion about his left eye at that time and he started to complain of left wrist pain early this morning and that is the reason for bringing him to the ED. They identified a fever there of 100.1 degrees. O2 sats last night was 97% on room air. Currently 95%. He was sent back to the ED this morning appropriately due to high fever and gross hematuria. Onset: Sudden Onset Date: 09/06/20 Duration: Hour(s):, Getting Worse Location: Reports: Generalized (High fever), Other (Gross hematuria) Quality: Reports: Other (Juan Jose reported by nursing staff at 38.3 but he feels warmer than this.) Severity: Severe Improves with: Reports: Medication (Apparently Tylenol worked to bring his fever under control last evening.) Worsens with: Reports: None Context: Reports: Other (Is a male who is mostly bedbound due to severe dementia presents to the ED with acute febrile illness of unclear etiology and associated bright red blood per urethra which was felt to be secondary to unsuccessful attempts to catheterize him due to an enlarged prostate gland.). Denies: Activity, Exercise, Lifting, Sick Contact, Trauma Associated Symptoms: Reports: Confusion (Medically confused and disoriented he does not), Fever/Chills, Loss of Appetite, Malaise, Shortness of Breath, Weakness, Other (Fall at [facility] yesterday morning unwitnessed). Denies: Chest Pain, Cough ( speak at all.), cough w sputum, Headaches, Nausea/Vomiting (High fever), Rash, Seizure, Syncope Treatments SOCIAL WORK JOB TITLES: Reports: Acetaminophen - Related Data Allergies Allergy/AdvReac Type Severity Reaction Status Date / Time No Known Allergies Allergy Verified 09/07/20 06:38 Home Meds: Home Meds Pantoprazole [ProTONIX] 40 mg PO DAILY 03/29/14 [History] Tamsulosin [Flomax] 0.4 mg PO BEDTIME 05/04/14 [History] Carbidopa/Levodopa [Sinemet 25-100 mg Tablet] 1 each PO BID 10/10/16 [History] Citalopram [Celexa] 20 mg PO 1200 10/10/16 [History] Donepezil [Aricept] 10 mg PO BEDTIME 10/10/16 [History] Bisacodyl [Dulcolax] 5 mg PO DAILY PRN #0 tablet 10/15/16 [Rx] Acetaminophen [Tylenol] 650 mg PO Q6H PRN #0 10/17/16 [Rx] Carbidopa/Levodopa [Carbidopa-Levodopa 25-100] 0.5 tab PO ACDINNER 09/07/20 [History] Cholecalciferol (Vitamin D3) [Vitamin D3] 1,000 unit PO DAILY 09/07/20 [History] Metoprolol Tartrate 25 mg PO BID 09/07/20 [History] atorvaSTATin [Lipitor] 40 mg PO BEDTIME 09/07/20 [History] metFORMIN [Glucophage] 250 mg PO DAILY 09/07/20 [History] Past Medical History HEENT History: Reports: Impaired Vision Other HEENT History: Wears glasses. Has ringing in ears on and off. Cardiovascular History: Reports: High Cholesterol, Hypertension Respiratory History: Reports: None Gastrointestinal History: Reports: GERD Genitourinary History: Reports: BPH GUEST EXPERIENCE REPRESENTATIVE History: Reports: None Neurological History: Reports: Alzheimers Disease, CVA, Parkinson's Psychiatric History: Reports: Dementia Endocrine/Metabolic History: Reports: Diabetes, Type II Hematologic History: Reports: None Immunologic History: Reports: None Oncologic (Cancer) History: Reports: None Dermatologic History: Reports: None - Past Surgical History HEENT Surgical History: Reports: Other (See Below) Other HEENT Surgeries/Procedures: Bilateral Cardiovascular Surgical History: Reports: Coronary Artery Bypass, Pacer Other Cardiovascular Surgeries/Procedures: Quadruple bypass GI Surgical History: Reports: Hernia, Abdominal Male Surgical History: Reports: Prostatectomy Musculoskeletal Surgical History: Reports: ORIF Other Musculoskeletal Surgeries/Procedures:: Left elbow Social & Family History - Family History Family Medical History: No Pertinent Family History - Tobacco Use Tobacco Use Status *Q: Never Tobacco User - Caffeine Use Caffeine Use: Reports: None - Living Situation & Occupation Living situation: Reports: Extended Care Facility ([facility]) Occupation: Retired ED ROS GENERAL - Review of Systems Review Of Systems: Unable To Obtain Reason Not Obtained: Patient suffers from severe dementia and perhaps mild Parkinson's ED EXAM, SEPSIS - Physical Exam Exam: See Below Exam Limited By: Other (Patient is completely nonverbal. Patient is very warm to palpation. He has Steri-Strips holding a superficial laceration together superior lateral left orbit and eyebrow area. He has some ecchymoses of the left upper eyelid. Patient cannot obey any commands.) General Appearance: Mild Distress, Thin, Other (Temperature at this time is reported to be 38.3 with a heart rate of 95 and an O2 sat of 95% with respiratory of 18 BP 10/11/1946.) Eye Exam: Bilateral Eye: Normal Inspection (Mild blepharal pallor appreciated), Other (Ecchymoses due to a superficial laceration left lateral superior orbit and some ecchymoses left upper eyelid. The eye itself appears to be uninjured.) Throat/Mouth: Other (None is a very dry and coated. Teeth are in poor condi tion. Lips are chapped and dry.) Head: Other (No outward signs of head trauma. CT of the head was reviewed from last evening and showed age-appropriate degenerative changes with mild encephalomalacia at the anterior horns and posterior horns of the lateral ventricles. Diffuse small vessel ischemic change in both basal ganglia with no obvious lacunar infarct. No intracranial hemorrhage or mass-effect identified. No skull fractures identified.) Neck: Limited Range of Motion, Other (He holds his neck fairly rigid.). No: Lymphadenopathy (L), Lymphadenopathy (R) Respiratory/Chest: Normal Breath Sounds, Decreased Breath Sounds, Other (Patient has a pacemaker left upper anterior chest. Well-healed midline sternotomy incision .). No: Chest Non-Tender, Respiratory Distress Cardiovascular: Regular Rate, Rhythm, No Edema, No Gallop, No Murmur, No Rub. No: Normal Peripheral Pulses (Sounds are diminished to the lower 25% of lung moreau posteriorly.) Peripheral Pulses: 1+: Posterior Tibial (L), Posterior Tibial (R), Dorsalis Pedis (L), Dorsalis Pedis (R), 2+: Carotid (L), Carotid (R) GI/Abdominal Exam: Normal Bowel Sounds, Soft, No Organomegaly, No Mass, Pelvis Stable, Tender (Patient appears to wince on compression of the abdomen in the epigastrium and right upper quadrant of the abdomen with no definitive masses palpable. No obvious guarding or rebound tenderness but hard to identify in a patient who does not speak. His abdomen is scaphoid with fairly firm musculature.), Other (No palpable urinary bladder.) Back: Other (Mild kyphosis thoracic spine.) Extremities: Other (Patient is a short arm Ortho-Glass splint on his left arm. I reviewed the x-rays of his left wrist and it does confirm a nondisplaced ulnar styloid fracture which is of no consequence other than causing some pain for the next 3 to 4 days. A follow-up appointment is to be arranged with Dr. Soares orthopedic surgeon) Neurological: Other (Not able to ascertain neurological status as he is nonverbal. He will not obey any commands.) Skin: Warm, Dry, Intact, Normal Color, Other (Feeling very febrile.) #1 Interpretation EKG Date: 09/07/20 Time: 07:42 Rhythm: Other (Total sensed 100% ventricular paced rhythm) Rate (Beats/Min): 90 EKG Interpretation Comments: Atrial sensed 100% ventricular paced rhythm at 90/min no further analysis attempted Course - Vital Signs Last Recorded V/S: Last Vital Signs Temp 36.7 C 09/07/20 07:57 Pulse 95 09/07/20 06:39 Resp 18 09/07/20 06:39 BP 120/49 L 09/07/20 06:39 Pulse Ox 95 09/07/20 06:39 - Orders/Labs/Meds Orders: Active Orders 24 hr Category Date Time Status EKG Documentation Completion [RC] STAT Care 09/07/20 07:02 Active CULTURE BLOOD [BC] Stat Lab 09/07/20 07:21 Received CULTURE BLOOD [BC] Stat Lab 09/07/20 07:37 Received CULTURE URINE [RM] Routine Lab 09/07/20 08:00 Received KETONES,BLOOD [CHEM] Stat Lab 09/07/20 07:21 Received LACTIC ACID [CHEM] Stat Lab 09/07/20 10:15 Ordered Dextrose 5%-0.9% NaCl [Dextrose 5%-Normal Saline] 1,000 Med 09/07/20 07:15 Active ml IV ASDIRECTED Lactated Ringers [Ringers, Lactated] 1,000 ml Med 09/07/20 09:15 Active IV ASDIRECTED Sodium Chloride 0.9% [Saline Flush] Med 09/07/20 08:08 Active 10 ml FLUSH ONETIME PRN Blood Culture x2 Reflex Set [OM.PC] Stat Oth 09/07/20 07:03 Ordered Medication Orders Dextrose/Sodium Chloride (Dextrose 5%-Normal Saline) 1,000 mls @ 999 mls/hr IV ASDIRECTED RADHA Last Admin: 09/07/20 07:37 Dose: 999 mls/hr Documented by: JORDYNTCCHELSEA Lactated Ringer's (Ringers, Lactated) 1,000 mls @ 500 mls/hr IV ASDIRECTED RADHA Last Admin: 09/07/20 09:15 Dose: 250 mls/hr Documented by: JORDYNTCON Sodium Chloride (Saline Flush) 10 ml FLUSH ONETIME PRN PRN Reason: IV FLUSH Last Admin: 12/17/20 08:20 Dose: 10 ml Documented by: SANDRA Labs: Laboratory Tests 09/07/20 09/07/20 09/07/20 Range/Units 06:43 06:43 06:43 WBC 6.53 (4.23-9.07) K/mm3 RBC 4.23 L (4.63-6.08) M/mm3 Hgb 13.1 L (13.7-17.5) gm/dl Hct 39.6 L (40.1-51.0) % MCV 93.6 H (79.0-92.2) fl MCH 31.0 (25.7-32.2) pg MCHC 33.1 (32.2-35.5) g/dl RDW Std Deviation 47.0 H (35.1-43.9) fL Plt Count 147 L (163-337) K/mm3 MPV 9.9 (9.4-12.3) fl Neutrophils % (Manual) 62 H (40-60) % Band Neutrophils % 35 H (0-10) % Lymphocytes % (Manual) 2 L (20-40) % Atypical Lymphs % 0 % Monocytes % (Manual) 1 L (2-10) % Eosinophils % (Manual) 0 L (0.8-7.0) % Basophils % (Manual) 0 L (0.2-1.2) Platelet Estimate Decreased Plt Morphology Comment Normal RBC Morph Comment Normal ESR 7 (0-15) mm/hr PT (9.7-12.0) SECONDS INR APTT (21.7-31.4) SECONDS Sodium (136-145) mEq/L Potassium (3.5-5.1) mEq/L Chloride (98-107) mEq/L Carbon Dioxide (21-32) mEq/L Anion Gap (5-15) BUN (7-18) mg/dL Creatinine (0.7-1.3) mg/dL Est Cr Clr Drug Dosing Estimated GFR (MDRD) (>60) mL/min BUN/Creatinine Ratio (14-18) Glucose (83-115) mg/dL Hemoglobin A1c (4.50-6.20) % Lactic Acid 7.0 H* (0.4-2.0) mmol/L Calcium (8.5-10.1) mg/dL Magnesium (1.8-2.4) mg/dl Total Bilirubin (0.2-1.0) mg/dL GGT (15-85) U/L AST (15-37) U/L ALT (16-63) U/L Alkaline Phosphatase (46-116) U/L Troponin I (0.00-0.056) ng/mL C-Reactive Protein (<1.0) mg/dL NT-Pro-B Natriuret Pep (0-450) pg/mL Total Protein (6.4-8.2) g/dl Albumin (3.4-5.0) g/dl Globulin gm/dL Albumin/Globulin Ratio (1-2) Lipase (73-393) U/L Prostate Specific Ag (0.1-4.0) ng/mL Urine Color (Yellow) Urine Appearance (Clear) Urine pH (5.0-8.0) Ur Specific [place] (1.005-1.030) Urine Protein (Negative) Urine Glucose (UA) (Negative) Urine Ketones (Negative) Urine Occult Blood (Negative) Urine Nitrite (Negative) Urine Bilirubin (Negative) Urine Urobilinogen (0.2-1.0) Ur Leukocyte Esterase (Negative) Urine RBC (0-5) /hpf Urine WBC (0-5) /hpf Ur Epithelial Cells (0-5) /hpf Urine Bacteria (FEW) /hpf Urine Mucus (FEW) /hpf Urinalysis Comment 09/07/20 09/07/20 09/07/20 Range/Units 06:43 07:21 07:21 WBC (4.23-9.07) K/mm3 RBC (4.63-6.08) M/mm3 Hgb (13.7-17.5) gm/dl Hct (40.1-51.0) % MCV (79.0-92.2) fl MCH (25.7-32.2) pg MCHC (32.2-35.5) g/dl RDW Std Deviation (35.1-43.9) fL Plt Count (163-337) K/mm3 MPV (9.4-12.3) fl Neutrophils % (Manual) (40-60) % Band Neutrophils % (0-10) % Lymphocytes % (Manual) (20-40) % Atypical Lymphs % % Monocytes % (Manual) (2-10) % Eosinophils % (Manual) (0.8-7.0) % Basophils % (Manual) (0.2-1.2) Platelet Estimate Plt Morphology Comment RBC Morph Comment ESR (0-15) mm/hr PT 15.1 H (9.7-12.0) SECONDS INR 1.42 APTT 31.0 (21.7-31.4) SECONDS Sodium 139 (136-145) mEq/L Potassium 3.2 L (3.5-5.1) mEq/L Chloride 104 (98-107) mEq/L Carbon Dioxide 20 L (21-32) mEq/L Anion Gap 18.2 H (5-15) BUN 28 H (7-18) mg/dL Creatinine 1.5 H (0.7-1.3) mg/dL Est Cr Clr Drug Dosing TNP Estimated GFR (MDRD) 45 (>60) mL/min BUN/Creatinine Ratio 18.7 H (14-18) Glucose 189 H (83-115) mg/dL Hemoglobin A1c 7.70 H (4.50-6.20) % Lactic Acid (0.4-2.0) mmol/L Calcium 8.4 L (8.5-10.1) mg/dL Magnesium 1.5 L (1.8-2.4) mg/dl Total Bilirubin 1.5 H (0.2-1.0) mg/dL GGT (15-85) U/L AST 46 H (15-37) U/L ALT 56 (16-63) U/L Alkaline Phosphatase 126 H (46-116) U/L Troponin I 0.075 H* (0.00-0.056) ng/mL C-Reactive Protein 1.9 H* (<1.0) mg/dL NT-Pro-B Natriuret Pep (0-450) pg/mL Total Protein 5.8 L (6.4-8.2) g/dl Albumin 2.7 L (3.4-5.0) g/dl Globulin 3.1 gm/dL Albumin/Globulin Ratio 0.9 L (1-2) Lipase (73-393) U/L Prostate Specific Ag (0.1-4.0) ng/mL Urine Color (Yellow) Urine Appearance (Clear) Urine pH (5.0-8.0) Ur Specific [place] (1.005-1.030) Urine Protein (Negative) Urine Glucose (UA) (Negative) Urine Ketones (Negative) Urine Occult Blood (Negative) Urine Nitrite (Negative) Urine Bilirubin (Negative) Urine Urobilinogen (0.2-1.0) Ur Leukocyte Esterase (Negative) Urine RBC (0-5) /hpf Urine WBC (0-5) /hpf Ur Epithelial Cells (0-5) /hpf Urine Bacteria (FEW) /hpf Urine Mucus (FEW) /hpf Urinalysis Comment 09/07/20 09/07/20 09/07/20 Range/Units 07:21 07:21 07:21 WBC (4.23-9.07) K/mm3 RBC (4.63-6.08) M/mm3 Hgb (13.7-17.5) gm/dl Hct (40.1-51.0) % MCV (79.0-92.2) fl MCH (25.7-32.2) pg MCHC (32.2-35.5) g/dl RDW Std Deviation (35.1-43.9) fL Plt Count (163-337) K/mm3 MPV (9.4-12.3) fl Neutrophils % (Manual) (40-60) % Band Neutrophils % (0-10) % Lymphocytes % (Manual) (20-40) % Atypical Lymphs % % Monocytes % (Manual) (2-10) % Eosinophils % (Manual) (0.8-7.0) % Basophils % (Manual) (0.2-1.2) Platelet Estimate Plt Morphology Comment RBC Morph Comment ESR (0-15) mm/hr PT (9.7-12.0) SECONDS INR APTT (21.7-31.4) SECONDS Sodium (136-145) mEq/L Potassium (3.5-5.1) mEq/L Chloride (98-107) mEq/L Carbon Dioxide (21-32) mEq/L Anion Gap (5-15) BUN (7-18) mg/dL Creatinine (0.7-1.3) mg/dL Est Cr Clr Drug Dosing Estimated GFR (MDRD) (>60) mL/min BUN/Creatinine Ratio (14-18) Glucose (83-115) mg/dL Hemoglobin A1c (4.50-6.20) % Lactic Acid (0.4-2.0) mmol/L Calcium (8.5-10.1) mg/dL Magnesium (1.8-2.4) mg/dl Total Bilirubin (0.2-1.0) mg/dL GGT 187 H (15-85) U/L AST (15-37) U/L ALT (16-63) U/L Alkaline Phosphatase (46-116) U/L Troponin I (0.00-0.056) ng/mL C-Reactive Protein (<1.0) mg/dL NT-Pro-B Natriuret Pep 2670 H (0-450) pg/mL Total Protein (6.4-8.2) g/dl Albumin (3.4-5.0) g/dl Globulin gm/dL Albumin/Globulin Ratio (1-2) Lipase 179 (73-393) U/L Prostate Specific Ag (0.1-4.0) ng/mL Urine Color (Yellow) Urine Appearance (Clear) Urine pH (5.0-8.0) Ur Specific [place] (1.005-1.030) Urine Protein (Negative) Urine Glucose (UA) (Negative) Urine Ketones (Negative) Urine Occult Blood (Negative) Urine Nitrite (Negative) Urine Bilirubin (Negative) Urine Urobilinogen (0.2-1.0) Ur Leukocyte Esterase (Negative) Urine RBC (0-5) /hpf Urine WBC (0-5) /hpf Ur Epithelial Cells (0-5) /hpf Urine Bacteria (FEW) /hpf Urine Mucus (FEW) /hpf Urinalysis Comment 09/07/20 09/07/20 Range/Units 07:21 08:00 WBC (4.23-9.07) K/mm3 RBC (4.63-6.08) M/mm3 Hgb (13.7-17.5) gm/dl Hct (40.1-51.0) % MCV (79.0-92.2) fl MCH (25.7-32.2) pg MCHC (32.2-35.5) g/dl RDW Std Deviation (35.1-43.9) fL Plt Count (163-337) K/mm3 MPV (9.4-12.3) fl Neutrophils % (Manual) (40-60) % Band Neutrophils % (0-10) % Lymphocytes % (Manual) (20-40) % Atypical Lymphs % % Monocytes % (Manual) (2-10) % Eosinophils % (Manual) (0.8-7.0) % Basophils % (Manual) (0.2-1.2) Platelet Estimate Plt Morphology Comment RBC Morph Comment ESR (0-15) mm/hr PT (9.7-12.0) SECONDS INR APTT (21.7-31.4) SECONDS Sodium (136-145) mEq/L Potassium (3.5-5.1) mEq/L Chloride (98-107) mEq/L Carbon Dioxide (21-32) mEq/L Anion Gap (5-15) BUN (7-18) mg/dL Creatinine (0.7-1.3) mg/dL Est Cr Clr Drug Dosing Estimated GFR (MDRD) (>60) mL/min BUN/Creatinine Ratio (14-18) Glucose (83-115) mg/dL Hemoglobin A1c (4.50-6.20) % Lactic Acid (0.4-2.0) mmol/L Calcium (8.5-10.1) mg/dL Magnesium (1.8-2.4) mg/dl Total Bilirubin (0.2-1.0) mg/dL GGT (15-85) U/L AST (15-37) U/L ALT (16-63) U/L Alkaline Phosphatase (46-116) U/L Troponin I (0.00-0.056) ng/mL C-Reactive Protein (<1.0) mg/dL NT-Pro-B Natriuret Pep (0-450) pg/mL Total Protein (6.4-8.2) g/dl Albumin (3.4-5.0) g/dl Globulin gm/dL Albumin/Globulin Ratio (1-2) Lipase (73-393) U/L Prostate Specific Ag < 0.1 L (0.1-4.0) ng/mL Urine Color Red H (Yellow) Urine Appearance Turbid H (Clear) Urine pH 8.5 H (5.0-8.0) Ur Specific [place] 1.010 (1.005-1.030) Urine Protein 3+ H (Negative) Urine Glucose (UA) Trace H (Negative) Urine Ketones 2+ H (Negative) Urine Occult Blood 3+ H (Negative) Urine Nitrite Positive H (Negative) Urine Bilirubin 3+ H (Negative) Urine Urobilinogen 4.0 H (0.2-1.0) Ur Leukocyte Esterase 3+ H (Negative) Urine RBC Too numerous to cnt H (0-5) /hpf Urine WBC 10-20 H (0-5) /hpf Ur Epithelial Cells Not seen (0-5) /hpf Urine Bacteria Rare (FEW) /hpf Urine Mucus Not seen (FEW) /hpf Urinalysis Comment Meds: Medications Generic Name Dose Route Start Last Admin Trade Name Freq PRN Reason Stop Dose Admin Dextrose/Sodium Chloride 1,000 mls @ 999 mls/hr 09/07/20 07:15 09/07/20 07:37 Dextrose 5%-Normal Saline IV 999 mls/hr ASDIRECTED RADHA Administration Lactated Ringer's 1,000 mls @ 500 mls/hr 09/07/20 09:15 09/07/20 09:15 Ringers, Lactated IV 250 mls/hr ASDIRECTED RADHA Administration Sodium Chloride 10 ml 09/07/20 08:08 09/07/20 08:20 Saline Flush FLUSH 10 ml ONETIME PRN Administration IV FLUSH Discontinued Medications Generic Name Dose Route Start Last Admin Trade Name Freq PRN Reason Stop Dose Admin Acetaminophen 650 mg 09/07/20 07:01 09/07/20 07:27 Tylenol RECTAL 09/07/20 07:02 650 mg NOW ONE Administration Ceftriaxone Sodium 2 gm/ 100 mls @ 200 mls/hr 09/07/20 07:04 09/07/20 07:39 Sodium Chloride IV 09/07/20 07:33 200 mls/hr ONETIME ONE Administration Piperacillin Sod/Tazobactam 100 mls @ 200 mls/hr 09/07/20 07:49 09/07/20 08:31 Sod 4.5 gm/ Sodium Chloride IV 09/07/20 08:18 200 mls/hr ONETIME ONE Administration Iopamidol 100 ml 09/07/20 08:08 09/07/20 08:20 Isovue-300 (61%) IVPUSH 09/07/20 08:09 100 ml ONETIME ONE Administration - Radiology Interpretation Free Text/Narrative:: 85-year-old male presents to the ED from [facility] due to passage of bright red blood per urethra. We felt this was likely to occur due to several attempts to catheterize him for a urine specimen last evening which proved to be unsuccessful. He still has a little bit of blood oozing per urethra. He is very warm palpation on review of his chest x-ray I felt there was a infiltrate adjacent to the right perihilar area compatible with an early pneumonia. Of course is always possibility is a urinary tract infection. Bladder scan shows no urine within the urinary bladder suggesting that he is incontinent or developing an urea. Labs reviewed from last night reveal a slightly elevated white count at 11.14 with a hemoglobin of 13.1 and hematocrit of 39.1. Platelet count was 205,000. Differential showed 74% neutrophils no bands reported. Blood sugar was elevated at 197. Otherwise labs were untoward with normal renal function lactic acid last night was 1.8. Coronavirus and influenza screens were reported to be negative. Plan IV D5 normal saline at open. Septic work-up to be commenced including lactic acid blood cultures x2 CRP. No further attempts at catheterization will be obtained since the bladder is empty at this point time. I have asked to see if we can identify a condom catheter that can be placed to collect a urine specific specimen. Patient will be given 2 g of Rocephin as soon as blood cultures x2 are collected. Given Tylenol 650 mg per rectum for fever relief. 1 view of the pelvis will be obtained as he seemed to wince when I try to move his left hip. - Re-Assessments/Exams Free Text/Narrative Re-Assessment/Exam: 09/07/20 07:54 Total white count is 6.53 with a marked left shift of 62% neutrophils and 35% of bands cells reported. Hemoglobin is 13.1 with hematocrit of 39.6. Platelet count is low normal at 147,000. Hemoglobin A1c is elevated at 7.70 confirming that he is diabetic and is currently on low-dose Metformin. This will have to be withheld after IV contrast will be utilized for CT abdomen. Lactic acid is markedly elevated this morning at 7.0. Of note 6 to 7 hours ago it was 1.8 when seen through the ED. I am therefore going to add a second antibiotic i.e. Zosyn 4.5 g IV to cover gram-negative sepsis. 09/07/20 08:20 him catheter has been placed and is draining into a leg bag with gross hematuria. 09/07/20 08:42 Sed rate is 7. PT is 15.1 with an INR of 1.42. PTT is 31.0. Sodium is 139 with a potassium slightly low at 3.2. Chloride 104 with a bicarb of 20. Anion gap is markedly elevated at 18.2. BUN is 28 with a creatinine of 1.5. GFR is down to 45. BUN/creatinine ratio 18.7. Glucose 189 patient is known to be type II diabetic. Hemoglobin A1c is 7.70. Lactic acid severely elevated at 7.0. Calcium 8.4 with a magnesium of 1.5 i.e. low. Total bilirubin is elevated at 1.5. GGT elevated 187 AST is 46 with an ALT of 456. Alk phos days is 126. Troponin I is elevated at 0.075 C-reactive protein 1.9 BNP 2670. Total protein not yet available albumin is 2.7. Pelvis x-ray reveals mild joint space narrowing with in the left hip. Joint space in the right hip is preserved. Slightly prominent superior acetabulum is noted within both hips. Mild degenerative changes seen within the spine. Mild compression deformity of L5 is seen which is most likely chronic. Numerous surgical clips of prior clips are present within the pelvis. Calcification within the left pelvis is combined with phleboliths. Osteopenia appreciated. 09/07/20 08:55 CT of the abdomen has been completed with IV contrast only. Multiple wires are appreciated over the cardiac silhouette due to pacemaker wire placement. Visualized portion of the lower lung moreau increased densities worse on the right side difficult to exclude pneumonia.. Small hiatal hernia e vident. Liver contains multiple small density areas compatible with small cyst. Largest cyst measures approximately 3.6 cm which is in the left lower lateral lobe--likely a cyst versus hemangioma. Gallbladder appears to have slightly thickened conklin with slight pericholecystic fluid. Several small gallstones appreciated. Stomach appears normal. Pancreas is atrophic. Adrenal glands are slightly prominent but show no discrete mass bilaterally. 2 cysts are present on the left kidney no signs of urinary obstruction. One small cyst appreciated within the right kidney. Kidneys show symmetric contrast excretion into both ureter as well as within the bladder. There is significant perinephric stranding around the right kidney and minimal stranding of the inferior portion of the left kidney suggesting bilateral pyelonephritis. It appears that he has had previous prostate surgery with multiple clips evident in the prostatic fossa. 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 The aorta shows diffuse atherosclerotic calcification without aneurysm. No retroperitoneal adenopathy or mesenteric abnormalities noted. No pelvic mass or adenopathy is seen. Appendix is visualized and is felt to be within normal limits. 09/07/20 09:11 Urinalysis is back it was red or showing gross hematuria. 3+ proteinuria 2+ ketones 3+ occult blood positive nitrates 3+ bilirubin 3+ leukocyte esterase too numerous to count RBCs and 10-20 WBCs per high-power field. Urine culture will be ordered. 09/07/20 09:15 patient has completed first liter of IV fluids which is D5 normal saline. Second liter will be lactated Ringer's at 500 mils per hour. Patient is in mild congestive heart failure with a BNP of 2650. However he is septic with a lactic acid of 7.0 indicating poor perfusion of his organs. I will discussed the case with on-call hospitalist Dr. Hdz with a view to admission to the hospital. Prognosis remains extremely guarded at this time of sessile sepsis could be urinary tract or pneumonia. 09/07/20 09;52: I did speak with on-call hospitalist Dr. Hdz and the patient will be admitted to the med surgery floor for early sepsis likely of urinary tract origin. Repeat lactic acid has been ordered for 10 AM this morning. Again prognosis remains very guarded. Departure - Departure Time of Disposition: 10:02 Disposition: Admitted As Inpatient 68 Condition: Serious Clinical Impression: Acute febrile illness, Lactic acidosis, Elevated troponin I measurement, Mild congestive heart failure, Severe dementia Urinary tract infection Qualifiers: Urinary tract infection type: site unspecified Hematuria presence: with hematuria Qualified Code(s): N39.0 - Urinary tract infection, site not specified; R31.9 - Hematuria, unspecified Pneumonia involving right lung Qualifiers: Pneumonia type: due to unspecified organism Lung location: lower lobe of lung Qualified Code(s): J18.9 - Pneumonia, unspecified organism - Discharge Information *PRESCRIPTION DRUG MONITORING PROGRAM REVIEWED*: Not Applicable *COPY OF PRESCRIPTION DRUG MONITORING REPORT IN PATIENT [place]: Not Applicable Sepsis Event Note (ED) - Evaluation Sepsis Screening Result: Possible Sepsis Risk Current Stage of Sepsis: Severe Sepsis Possible Source of Sepsis: Pulmonary - Focused Exam Sepsis Event Note Statement: Focused Sepsis Exam Completed Vital Signs: Vital Signs Temp Temp Pulse Resp BP Pulse Ox 09/07/20 07:57 36.7 C 09/07/20 07:27 37.6 C 09/07/20 06:39 38.3 C H 95 18 120/49 L 95 - My Orders Last 24 Hours: My Active Orders 09/07/20 07:02 EKG Documentation Completion [RC] STAT 09/07/20 07:03 Blood Culture x2 Reflex Set [OM.PC] Stat 09/07/20 07:15 Dextrose 5%-0.9% NaCl [Dextrose 5%-Normal Saline] 1,000 ml IV ASDIRECTED 09/07/20 07:21 CULTURE BLOOD [BC] Stat KETONES,BLOOD [CHEM] Stat 09/07/20 07:37 CULTURE BLOOD [BC] Stat 09/07/20 08:00 CULTURE URINE [RM] Routine 09/07/20 08:08 Sodium Chloride 0.9% [Saline Flush] 10 ml FLUSH ONETIME PRN 09/07/20 09:15 Lactated Ringers [Ringers, Lactated] 1,000 ml IV ASDIRECTED 09/07/20 10:15 LACTIC ACID [CHEM] Stat - Assessment/Plan Last 24 Hours: My Active Orders 09/07/20 07:02 EKG Documentation Completion [RC] STAT 09/07/20 07:03 Blood Culture x2 Reflex Set [OM.PC] Stat 09/07/20 07:15 Dextrose 5%-0.9% NaCl [Dextrose 5%-Normal Saline] 1,000 ml IV ASDIRECTED 09/07/20 07:21 CULTURE BLOOD [BC] Stat KETONES,BLOOD [CHEM] Stat 09/07/20 07:37 CULTURE BLOOD [BC] Stat 09/07/20 08:00 CULTURE URINE [RM] Routine 09/07/20 08:08 Sodium Chloride 0.9% [Saline Flush] 10 ml FLUSH ONETIME PRN 09/07/20 09:15 Lactated Ringers [Ringers, Lactated] 1,000 ml IV ASDIRECTED 09/07/20 10:15 LACTIC ACID [CHEM] Stat
[2020-09-07] MEDS ORDERED: Dextrose 5%-0.9% NaCl 1,000 ML IV SCH (07:15)
[2020-09-07 07:39] LABS: HEMOGLOBIN A1C 7.7 % (4.50-6.20)
[2020-09-07] MEDS ORDERED: Piperacillin/Tazobactam 4.5 GM in Sodium Chloride 0.9% 100 ML IV ONE (07:49)
[2020-09-07] MEDS ORDERED: Sodium Chloride 0.9% 10 ML Syringe FLUSH PRN (08:08)
[2020-09-07] MEDS ORDERED: Iopamidol 612 MG/ML 100 ML Bottle IVPUSH ONE (08:08)
--- NOTE | 2020-09-07 08:42 | CR ---
Pelvis: AP view of the pelvis was obtained. Comparison: No prior pelvic studies available. Mild joint space narrowing with left hip is seen. Joint space with right hip is preserved. Slightly prominent superior acetabulum is noted within both hips. Mild degenerative change is seen within spine. Mild compression deformity of L5 is seen which is most likely chronic. Numerous surgical clips are seen within the pelvis. Calcification within left pelvis is compatible with phlebolith. Osteopenia seen. Nothing acute is seen. Impression: 1. Numerous findings as noted above. 2. Nothing acute is definitely appreciated. Diagnostic code #2
--- NOTE | 2020-09-07 08:49 | CT ---
CT abdomen and pelvis Technique: Multiple axial sections were obtained from above the dome of the diaphragm inferiorly through the pubic symphysis. Intravenous contrast was utilized. No oral contrast has been given. Additional delayed images were obtained through the abdomen and pelvis. Reconstructed coronal and sagittal images were obtained. Findings: Slight increased density within both lung bases, worse on the right side. Difficult to exclude pneumonia. Small scattered low density areas are seen within the liver which most likely represent small cysts. Largest cyst measures approximately 3.6 cm which is within the left lobe. Spleen appears normal. Adrenal glands are slightly prominent but showed no discrete mass. Cysts are believed to be present within the left kidney. Left kidney upper pole abnormality measures 3.3 cm and lower pole abnormality measures 1.8 cm. Multiple small cysts measuring less than 1 cm are believed to be present within the right kidney. Kidneys show symmetric contrast excretion into both ureters as well as within the bladder. Pancreas shows no discrete abnormality. Aorta shows diffuse atherosclerotic calcification without aneurysm. No retroperitoneal adenopathy or mesenteric abnormalities are seen. No pelvic mass or adenopathy is seen. Numerous surgical clips are noted within the pelvis. Prior prostate surgery appears to be present. No free fluid or inflammatory change is appreciated. Appendix is seen and is normal. Impression: 1. Slight density within both lung bases, worse on the right side. Difficult to exclude pneumonia. 2. Other findings as noted above which are felt to be chronic. Diagnostic code #3
[2020-09-07] MEDS ORDERED: Lactated Ringers 1,000 ML IV SCH (09:15)
--- NOTE | 2020-09-07 11:16 | PCM.HP.2 ---
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 He was initially seen yesterday in ED after he had fallen at the [place]. He had a traumatic fall with left periorbital hematoma with small laceration that was repaired. Skeletal survey and imaging studies revealed a mild fracture of the left ulnar styloid process noted on x-ray. His repeat x- ray showed right perihilar infiltrate. He was negative for covid and influenza screening. Per secondary sources, multiple trials were attempted for urinary catheter placement last night but w/o any success. At the half-way, he was given tylenol for initial treatment. His initial work up in ED shows a CBC remarkable for Hgb of 13.1, Hct of 39.6, MCV of 93.6, Platelet of 147, and Neutrophils # of 62%. His coagulation study is significant for PT of 15.1. His chemistry is significant for K of 3.2, CO2 of 18.2, BUN of 28, Cr of 1.5, BS of 189, A1C of 7.7, LA of 7.0, CA of 84, Mg of 1.5, GGT of 187. AST of 46, Alk phos of 126, Troponin I of 0.075, CRP of 1.9, ProBNP of 2670, and Albumin of 2.7. His UA shows turbid color, red, 3+ protein, occult blood, bilirubin, and leukocyte esterase. Pelvis x-ray report read as nothing acute seen. Abdominal/pelvis CT scan report read as slightly increased density within both lung crawford R>L. Sepsis was activated in ED and he received initial treatment before coming to acute floor. He is DNR/DNI. - Related Data Allergies/Adverse Reactions: Allergies Allergy/AdvReac Type Severity Reaction Status Date / Time No Known Allergies Allergy Verified 09/07/20 06:38 Home Medications: Home Meds Pantoprazole [ProTONIX] 40 mg PO DAILY 03/29/14 [History] Tamsulosin [Flomax] 0.4 mg PO BEDTIME 05/04/14 [History] Carbidopa/Levodopa [Sinemet 25-100 mg Tablet] 1 each PO BID 10/10/16 [History] Citalopram [Celexa] 20 mg PO 1200 10/10/16 [History] Donepezil [Aricept] 10 mg PO BEDTIME 10/10/16 [History] Bisacodyl [Dulcolax] 5 mg PO DAILY PRN #0 tablet 10/15/16 [Rx] Acetaminophen [Tylenol] 650 mg PO Q6H PRN #0 10/17/16 [Rx] Carbidopa/Levodopa [Carbidopa-Levodopa 25-100] 0.5 tab PO ACDINNER 09/07/20 [History] Cholecalciferol (Vitamin D3) [Vitamin D3] 1,000 unit PO DAILY 09/07/20 [History] Metoprolol Tartrate [Lopressor] 50 mg PO BID 09/07/20 [History] amLODIPine Besylate [Norvasc] 10 mg PO DAILY 09/07/20 [History] atorvaSTATin [Lipitor] 40 mg PO BEDTIME 09/07/20 [History] metFORMIN [Glucophage] 250 mg PO DAILY 09/07/20 [History] Past Medical History HEENT History: Reports: Impaired Vision Other HEENT History: Wears glasses. Has ringing in ears on and off. Cardiovascular History: Reports: High Cholesterol, Hypertension Respiratory History: Reports: None Gastrointestinal History: Reports: GERD Genitourinary History: Reports: BPH [employer]PERATOR History: Reports: None Neurological History: Reports: Alzheimers Disease, CVA, Parkinson's Psychiatric History: Reports: Dementia Endocrine/Metabolic History: Reports: Diabetes, Type II Hematologic History: Reports: None Immunologic History: Reports: None Oncologic (Cancer) History: Reports: None Dermatologic History: Reports: None - Past Surgical History HEENT Surgical History: Reports: Other (See Below) Other HEENT Surgeries/Procedures: Bilateral Cardiovascular Surgical History: Reports: Coronary Artery Bypass, Pacer Other Cardiovascular Surgeries/Procedures: Quadruple bypass GI Surgical History: Reports: Hernia, Abdominal Male Surgical History: Reports: Prostatectomy Musculoskeletal Surgical History: Reports: ORIF Other Musculoskeletal Surgeries/Procedures:: Left elbow Social & Family History - Family History Family Medical History: No Pertinent Family History - Tobacco Use Tobacco Use Status *Q: Never Tobacco User - Caffeine Use Caffeine Use: Reports: None - Living Situation & Occupation Living situation: Reports: Extended Care Facility ([facility]) Occupation: Retired H&P Review of Systems - Review of Systems: Review Of Systems: Unable To Obtain Reason Not Obtained: Patient is obtunded Exam - Exam Exam: See Below - Vital Signs Vital Signs: Last Vital Signs Temp 37.4 C 09/07/20 10:53 Pulse 81 09/07/20 10:53 Resp 24 H 09/07/20 10:53 BP 103/87 09/07/20 10:45 Pulse Ox 94 L 09/07/20 10:53 Weight: 54.431 kg - Exam General: Obtunded Neck: Supple Lungs: Normal Respiratory Effort, Decreased Breath Sounds Cardiovascular: Normal S1, Normal S2, Tachycardia GI/Abdominal Exam: Normal Bowel Sounds, Soft, Non-Tender, No Organomegaly (Male) Exam: Urethral Discharge (blood), Other (condom catheter). No: Penile Lesions, Scrotal Swelling Rectal (Males) Exam: Deferred Back Exam: Other Extremities: Normal Inspection, Other (baseline: left arm and weakness) Peripheral Pulses: 0: Dorsalis Pedis (L), Dorsalis Pedis (R) Skin: Warm, Dry, Intact, Petechia (on scrotum) Skin Alteration Location (Drawings Not To Scale): 1 - zaynab-orbital hematoma. small laceration with sutures around the left orbit 2 - dressed and wrapped Neuro Extensive - Mental Status: Withdraws to Pain, Other (move sponstanously). No: Opens Eyes to Commands - Patient Data Lab Results Last 24 hrs: Laboratory Results - last 24 hr 09/07/20 09/07/20 09/07/20 Range/Units 06:43 06:43 06:43 WBC 6.53 (4.23-9.07) K/mm3 RBC 4.23 L (4.63-6.08) M/mm3 Hgb 13.1 L (13.7-17.5) gm/dl Hct 39.6 L (40.1-51.0) % MCV 93.6 H (79.0-92.2) fl MCH 31.0 (25.7-32.2) pg MCHC 33.1 (32.2-35.5) g/dl RDW Std Deviation 47.0 H (35.1-43.9) fL Plt Count 147 L (163-337) K/mm3 MPV 9.9 (9.4-12.3) fl Neutrophils % (Manual) 62 H (40-60) % Band Neutrophils % 35 H (0-10) % Lymphocytes % (Manual) 2 L (20-40) % Atypical Lymphs % 0 % Monocytes % (Manual) 1 L (2-10) % Eosinophils % (Manual) 0 L (0.8-7.0) % Basophils % (Manual) 0 L (0.2-1.2) Platelet Estimate Decreased Plt Morphology Comment Normal RBC Morph Comment Normal ESR 7 (0-15) mm/hr PT (9.7-12.0) SECONDS INR APTT (21.7-31.4) SECONDS Sodium (136-145) mEq/L Potassium (3.5-5.1) mEq/L Chloride (98-107) mEq/L Carbon Dioxide (21-32) mEq/L Anion Gap (5-15) BUN (7-18) mg/dL Creatinine (0.7-1.3) mg/dL Est Cr Clr Drug Dosing Estimated GFR (MDRD) (>60) mL/min BUN/Creatinine Ratio (14-18) Glucose (83-115) mg/dL Hemoglobin A1c (4.50-6.20) % Lactic Acid 7.0 H* (0.4-2.0) mmol/L Calcium (8.5-10.1) mg/dL Magnesium (1.8-2.4) mg/dl Total Bilirubin (0.2-1.0) mg/dL GGT (15-85) U/L AST (15-37) U/L ALT (16-63) U/L Alkaline Phosphatase (46-116) U/L Troponin I (0.00-0.056) ng/mL C-Reactive Protein (<1.0) mg/dL NT-Pro-B Natriuret Pep (0-450) pg/mL Total Protein (6.4-8.2) g/dl Albumin (3.4-5.0) g/dl Globulin gm/dL Albumin/Globulin Ratio (1-2) Lipase (73-393) U/L Prostate Specific Ag (0.1-4.0) ng/mL Urine Color (Yellow) Urine Appearance (Clear) Urine pH (5.0-8.0) Ur Specific [place] (1.005-1.030) Urine Protein (Negative) Urine Glucose (UA) (Negative) Urine Ketones (Negative) Urine Occult Blood (Negative) Urine Nitrite (Negative) Urine Bilirubin (Negative) Urine Urobilinogen (0.2-1.0) Ur Leukocyte Esterase (Negative) Urine RBC (0-5) /hpf Urine WBC (0-5) /hpf Ur Epithelial Cells (0-5) /hpf Urine Bacteria (FEW) /hpf Urine Mucus (FEW) /hpf Urinalysis Comment 09/07/20 09/07/20 09/07/20 Range/Units 06:43 07:21 07:21 WBC (4.23-9.07) K/mm3 RBC (4.63-6.08) M/mm3 Hgb (13.7-17.5) gm/dl Hct (40.1-51.0) % MCV (79.0-92.2) fl MCH (25.7-32.2) pg MCHC (32.2-35.5) g/dl RDW Std Deviation (35.1-43.9) fL Plt Count (163-337) K/mm3 MPV (9.4-12.3) fl Neutrophils % (Manual) (40-60) % Band Neutrophils % (0-10) % Lymphocytes % (Manual) (20-40) % Atypical Lymphs % % Monocytes % (Manual) (2-10) % Eosinophils % (Manual) (0.8-7.0) % Basophils % (Manual) (0.2-1.2) Platelet Estimate Plt Morphology Comment RBC Morph Comment ESR (0-15) mm/hr PT 15.1 H (9.7-12.0) SECONDS INR 1.42 APTT 31.0 (21.7-31.4) SECONDS Sodium 139 (136-145) mEq/L Potassium 3.2 L (3.5-5.1) mEq/L Chloride 104 (98-107) mEq/L Carbon Dioxide 20 L (21-32) mEq/L Anion Gap 18.2 H (5-15) BUN 28 H (7-18) mg/dL Creatinine 1.5 H (0.7-1.3) mg/dL Est Cr Clr Drug Dosing TNP Estimated GFR (MDRD) 45 (>60) mL/min BUN/Creatinine Ratio 18.7 H (14-18) Glucose 189 H (83-115) mg/dL Hemoglobin A1c 7.70 H (4.50-6.20) % Lactic Acid (0.4-2.0) mmol/L Calcium 8.4 L (8.5-10.1) mg/dL Magnesium 1.5 L (1.8-2.4) mg/dl Total Bilirubin 1.5 H (0.2-1.0) mg/dL GGT (15-85) U/L AST 46 H (15-37) U/L ALT 56 (16-63) U/L Alkaline Phosphatase 126 H (46-116) U/L Troponin I 0.075 H* (0.00-0.056) ng/mL C-Reactive Protein 1.9 H* (<1.0) mg/dL NT-Pro-B Natriuret Pep (0-450) pg/mL Total Protein 5.8 L (6.4-8.2) g/dl Albumin 2.7 L (3.4-5.0) g/dl Globulin 3.1 gm/dL Albumin/Globulin Ratio 0.9 L (1-2) Lipase (73-393) U/L Prostate Specific Ag (0.1-4.0) ng/mL Urine Color (Yellow) Urine Appearance (Clear) Urine pH (5.0-8.0) Ur Specific [place] (1.005-1.030) Urine Protein (Negative) Urine Glucose (UA) (Negative) Urine Ketones (Negative) Urine Occult Blood (Negative) Urine Nitrite (Negative) Urine Bilirubin (Negative) Urine Urobilinogen (0.2-1.0) Ur Leukocyte Esterase (Negative) Urine RBC (0-5) /hpf Urine WBC (0-5) /hpf Ur Epithelial Cells (0-5) /hpf Urine Bacteria (FEW) /hpf Urine Mucus (FEW) /hpf Urinalysis Comment 09/07/20 09/07/20 09/07/20 Range/Units 07:21 07:21 07:21 WBC (4.23-9.07) K/mm3 RBC (4.63-6.08) M/mm3 Hgb (13.7-17.5) gm/dl Hct (40.1-51.0) % MCV (79.0-92.2) fl MCH (25.7-32.2) pg MCHC (32.2-35.5) g/dl RDW Std Deviation (35.1-43.9) fL Plt Count (163-337) K/mm3 MPV (9.4-12.3) fl Neutrophils % (Manual) (40-60) % Band Neutrophils % (0-10) % Lymphocytes % (Manual) (20-40) % Atypical Lymphs % % Monocytes % (Manual) (2-10) % Eosinophils % (Manual) (0.8-7.0) % Basophils % (Manual) (0.2-1.2) Platelet Estimate Plt Morphology Comment RBC Morph Comment ESR (0-15) mm/hr PT (9.7-12.0) SECONDS INR APTT (21.7-31.4) SECONDS Sodium (136-145) mEq/L Potassium (3.5-5.1) mEq/L Chloride (98-107) mEq/L Carbon Dioxide (21-32) mEq/L Anion Gap (5-15) BUN (7-18) mg/dL Creatinine (0.7-1.3) mg/dL Est Cr Clr Drug Dosing Estimated GFR (MDRD) (>60) mL/min BUN/Creatinine Ratio (14-18) Glucose (83-115) mg/dL Hemoglobin A1c (4.50-6.20) % Lactic Acid (0.4-2.0) mmol/L Calcium (8.5-10.1) mg/dL Magnesium (1.8-2.4) mg/dl Total Bilirubin (0.2-1.0) mg/dL GGT 187 H (15-85) U/L AST (15-37) U/L ALT (16-63) U/L Alkaline Phosphatase (46-116) U/L Troponin I (0.00-0.056) ng/mL C-Reactive Protein (<1.0) mg/dL NT-Pro-B Natriuret Pep 2670 H (0-450) pg/mL Total Protein (6.4-8.2) g/dl Albumin (3.4-5.0) g/dl Globulin gm/dL Albumin/Globulin Ratio (1-2) Lipase 179 (73-393) U/L Prostate Specific Ag (0.1-4.0) ng/mL Urine Color (Yellow) Urine Appearance (Clear) Urine pH (5.0-8.0) Ur Specific [place] (1.005-1.030) Urine Protein (Negative) Urine Glucose (UA) (Negative) Urine Ketones (Negative) Urine Occult Blood (Negative) Urine Nitrite (Negative) Urine Bilirubin (Negative) Urine Urobilinogen (0.2-1.0) Ur Leukocyte Esterase (Negative) Urine RBC (0-5) /hpf Urine WBC (0-5) /hpf Ur Epithelial Cells (0-5) /hpf Urine Bacteria (FEW) /hpf Urine Mucus (FEW) /hpf Urinalysis Comment 09/07/20 09/07/20 09/07/20 Range/Units 07:21 08:00 10:19 WBC (4.23-9.07) K/mm3 RBC (4.63-6.08) M/mm3 Hgb (13.7-17.5) gm/dl Hct (40.1-51.0) % MCV (79.0-92.2) fl MCH (25.7-32.2) pg MCHC (32.2-35.5) g/dl RDW Std Deviation (35.1-43.9) fL Plt Count (163-337) K/mm3 MPV (9.4-12.3) fl Neutrophils % (Manual) (40-60) % Band Neutrophils % (0-10) % Lymphocytes % (Manual) (20-40) % Atypical Lymphs % % Monocytes % (Manual) (2-10) % Eosinophils % (Manual) (0.8-7.0) % Basophils % (Manual) (0.2-1.2) Platelet Estimate Plt Morphology Comment RBC Morph Comment ESR (0-15) mm/hr PT (9.7-12.0) SECONDS INR APTT (21.7-31.4) SECONDS Sodium (136-145) mEq/L Potassium (3.5-5.1) mEq/L Chloride (98-107) mEq/L Carbon Dioxide (21-32) mEq/L Anion Gap (5-15) BUN (7-18) mg/dL Creatinine (0.7-1.3) mg/dL Est Cr Clr Drug Dosing Estimated GFR (MDRD) (>60) mL/min BUN/Creatinine Ratio (14-18) Glucose (83-115) mg/dL Hemoglobin A1c (4.50-6.20) % Lactic Acid 6.5 H* (0.4-2.0) mmol/L Calcium (8.5-10.1) mg/dL Magnesium (1.8-2.4) mg/dl Total Bilirubin (0.2-1.0) mg/dL GGT (15-85) U/L AST (15-37) U/L ALT (16-63) U/L Alkaline Phosphatase (46-116) U/L Troponin I (0.00-0.056) ng/mL C-Reactive Protein (<1.0) mg/dL NT-Pro-B Natriuret Pep (0-450) pg/mL Total Protein (6.4-8.2) g/dl Albumin (3.4-5.0) g/dl Globulin gm/dL Albumin/Globulin Ratio (1-2) Lipase (73-393) U/L Prostate Specific Ag < 0.1 L (0.1-4.0) ng/mL Urine Color Red H (Yellow) Urine Appearance Turbid H (Clear) Urine pH 8.5 H (5.0-8.0) Ur Specific [place] 1.010 (1.005-1.030) Urine Protein 3+ H (Negative) Urine Glucose (UA) Trace H (Negative) Urine Ketones 2+ H (Negative) Urine Occult Blood 3+ H (Negative) Urine Nitrite Positive H (Negative) Urine Bilirubin 3+ H (Negative) Urine Urobilinogen 4.0 H (0.2-1.0) Ur Leukocyte Esterase 3+ H (Negative) Urine RBC Too numerous to cnt H (0-5) /hpf Urine WBC 10-20 H (0-5) /hpf Ur Epithelial Cells Not seen (0-5) /hpf Urine Bacteria Rare (FEW) /hpf Urine Mucus Not seen (FEW) /hpf Urinalysis Comment Result Diagrams: 09/08/20 06:06 09/08/20 06:06 Sepsis Event Note - Evaluation Sepsis Screening Result: No Definite Risk - Focused Exam Vital Signs: Vital Signs Temp Temp Pulse Pulse Resp BP BP 09/07/20 10:53 37.4 C 81 24 H 09/07/20 10:45 83 103/87 09/07/20 10:18 84 18 104/71 09/07/20 10:01 37.0 C 83 22 H 85/71 L 09/07/20 07:57 36.7 C 09/07/20 07:27 37.6 C 09/07/20 06:39 38.3 C H 95 18 120/49 L Pulse Ox 09/07/20 10:53 94 L 09/07/20 10:45 86 L 09/07/20 10:18 94 L 09/07/20 10:01 94 L 09/07/20 07:57 09/07/20 07:27 09/07/20 06:39 95 - Bedside Monitoring Fluid Bolus Goal: Yes Problem List Initiated/Reviewed/Updated: Yes Orders Last 24hrs: Active Orders 24 hr Category Date Time Status Admission Status [Patient Status] [ADT] Routine ADT 09/07/20 10:04 Active Patient Status [ADT] Routine ADT 09/07/20 09:56 Active EKG Documentation Completion [RC] STAT Care 09/07/20 07:02 Active CULTURE BLOOD [BC] Stat Lab 09/07/20 07:21 Received CULTURE BLOOD [BC] Stat Lab 09/07/20 07:37 Received CULTURE URINE [RM] Routine Lab 09/07/20 08:00 Received KETONES,BLOOD [CHEM] Stat Lab 09/07/20 07:21 Received Dextrose 5%-0.9% NaCl [Dextrose 5%-Normal Saline] 1,000 Med 09/07/20 07:15 Active ml IV ASDIRECTED Lactated Ringers [Ringers, Lactated] 1,000 ml Med 09/07/20 09:15 Active IV ASDIRECTED Sodium Chloride 0.9% [Saline Flush] Med 09/07/20 08:08 Active 10 ml FLUSH ONETIME PRN Blood Culture x2 Reflex Set [OM.PC] Stat Oth 09/07/20 07:03 Ordered Medication Orders Dextrose/Sodium Chloride (Dextrose 5%-Normal Saline) 1,000 mls @ 999 mls/hr IV ASDIRECTED RADHA Last Admin: 09/07/20 07:37 Dose: 999 mls/hr Documented by: PHILIP Lactated Ringer's (Ringers, Lactated) 1,000 mls @ 500 mls/hr IV ASDIRECTED RADHA Last Admin: 09/07/20 09:15 Dose: 250 mls/hr Documented by: PHILIP Sodium Chloride (Saline Flush) 10 ml FLUSH ONETIME PRN PRN Reason: IV FLUSH Last Admin: 09/07/20 08:20 Dose: 10 ml Documented by: SANDRA Assessment/Plan Comment:: This is an 85 yo elderly white male with past medical hx/o Impaired Vision and Hearing, HTN, HLD, CAD S/p CABG, Sick sinus syndrome s/p pacemaker placement, GERD, BPH, 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 Acute: Septic shock, failed fluid challenge with signs of end organ failure Community Acquired Pneumonia Profound Hypotension Complex UTI/ Pyelonephritis Acute Urinary Retention with hx/o BPH S/p resection NSTEMI vs Demand Ischemia Mild fracture of the left ulnar styloid process noted on x-ray Hematuria likely from jolly catheter trauma Microcytic Normochromic Anemia with Hgb level of 13.1 grams Hypoxia on 2L NC Thrombocytopenia with Platelet of 147K Elevated NV of 15.1 Mild Hypokalemia with K of 3.2 Increased AG Metabolic Acidosis Acute Kidney Injury Hyperglycemia with DM2 Moderate-Severe Lactic Acidosis of 7.0 Hypocalcemia with non-corrected calcium level of 8.4 Hypomagnesemia with Mg of 1.5 Elevated GGT of 187 Mildly elevated of 46 Elevated Alk Phos of 126 Elevated ProBNP level of 2670 Hypoalbuminemia with Albumin of 2.[address] scan Findings Small cysts within the liver Cysts in the left Kidney Multiple Cysts in the right kidney Chronic: Impaired Vision and Hearing, HTN, HLD, CAD S/p CABG, Sick sinus syndrome s/p pacemaker placement, GERD, BPH, 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 Continue sepsis protocol. If he fails fluid challenge, he may need transfer to the unit. May need central line access. IV BS antibiotics. IV fluid for hydration. Serial Lactic acid and Procal level. Cortisol level for critical illness adrenal insufficiency. Repeat BMP with Mg t his level. Jolly catheter re-insertion using coude cath and or pediatric size for urinary retention and strict Is/Os. Monitor Hgb level. NPO for now due to AMS. Accu-check Q6H with insulin sliding scale. Solucortef 100 mg IV BID for hypotension. Heparin SubQ BID for DVT prophylaxis. Lipid Panel and ACS. GI prophylaxis: H2B. Code status is DNR/DNI. Renal U/S r/o obstructive uropathy. Urine electrolyte studies. Avoid nephrotoxic agents. Pharmacy to renally dose all medications. Hold all home meds for now due to AMS. Aspiration prevention. Prognosis guarded-poor. 1425: Patient failed fluid challenge. Went over diagnoses, prognosis, and clinical status with . Offered central line and pressor gtt, she agreed. We will move patient to the unit for close monitoring. Critical Care time spent: > 1.5 including line placement. - Mortality Measure Prognosis:: Poor
[2020-09-07] MEDS ORDERED: Sodium Chloride 0.9% 1,000 ML IV SCH (11:30)
[2020-09-07] MEDS ORDERED: Bisacodyl 5 MG Tab PO PRN (14:02)
[2020-09-07] MEDS ORDERED: Acetaminophen 325 MG Tab PO PRN (14:02)
[2020-09-07] MEDS ORDERED: Acetaminophen 650 MG Supp RECTAL PRN (14:02)
[2020-09-07] MEDS ORDERED: Albuterol/Ipratropium 3.0-0.5 MG/3 ML Neb Soln NEB PRN (14:02)
[2020-09-07] MEDS ORDERED: Ondansetron 4 MG/2 ML SDV IV PRN (14:02)
[2020-09-07] MEDS ORDERED: Polyethylene Glycol 3350 Powder 17 GM Packet PO PRN (14:02)
[2020-09-07] MEDS ORDERED: LORazepam 2 MG/ML SDV IVPUSH ONE ×3 (14:43→23:03)
--- NOTE | 2020-09-07 15:50 | PCM.PRNOTE ---
- Free Text/Narrative Note: Date: 09/07/2020 Procedure: Right IJV Central Line Placement Physician: Lina Hdz DO Concrete Bucket Unloader: Adrien Zavala RN Indication: Septic Shock Anesthesia: 2% Lidocaine A time-out was completed, verifying correct information, procedure, site, and positioning of the patient. Patients right internal jugular vein was prepped and draped in usual sterile fashion. 2% Lidocaine was used to anesthetize the area. A triple lumen central line was introduced over a wire via the Seldinger technique, then sutured in place. Good blood flow was noted from all ports. The patient tolerated the procedure well. Chest x-ray was ordered to assess for pneumothorax and catheter placement. Complications: None Blood loss: Minimal
[2020-09-07] MEDS ORDERED: Norepinephrine 4 MG in Dextrose 5% in Water 246 ML IV SCH ×2 (16:00)
--- NOTE | 2020-09-07 16:09 | CR ---
Chest: Semi-upright view of the chest was obtained. Comparison: Prior chest x-ray performed earlier on 08/28/20. Tortuous thoracic aorta and slight cardiomegaly is noted. Sternotomy and pacemaker wires are noted. Mild atelectasis is seen within both lung bases. Right-sided central line is seen from the jugular position. Tip lies within the right atrium close to the right atrial and superior vena cava junction. Bony structures show nothing acute. No pneumothorax is seen. Impression: 1. Tip of right jugular line within the right atrium close to the right atrial and superior vena cava junction. 2. Bibasilar atelectasis and other findings as noted above. Diagnostic code #3
[2020-09-07] MEDS ORDERED: OLANZapine 10 MG Vial IM PRN (16:43)
[2020-09-07] MEDS ORDERED: guaiFENesin/Dextromethorphan 100-10 MG/5 ML Soln 5 ML Cup PO PRN (16:49)
[2020-09-07] MEDS: Hydrocortisone Sodium Succinate 100 MG/2 ML SDV IVPUSH SCH (16:56)
[2020-09-07] MEDS: Heparin Sodium 5,000 Units/ML Vial SUBCUT SCH (16:57)
[2020-09-07] MEDS: Piperacillin/Tazobactam 4.5 GM in Sodium Chloride 0.9% 100 ML IV SCH (16:58)
--- NOTE | 2020-09-07 18:10 | US ---
Addendum: Study was reviewed which shows a small soft tissue finding within the bladder measuring up to 3.3 cm with thickness of 8 mm. Uncertain if this is due to layering debris or represents bladder mass. Cystoscopy is recommended to further evaluate. --- Addendum1 above dictated on [09/08/2020 14:36] by [Krishna Humphreys, Sean Cruz] --- --- Addendum1 above signed on [09/08/2020 14:47] by [Krishna Humphreys, Sean Cruz] --- --- Original report below dictated on [09/07/2020 17:59] by [Krishna Humphreys, Sean Cruz] --- --- Original report below signed on [09/07/2020 18:07] by [Krishna Humphreys, Sean Cruz] --- Renal ultrasound: Multiple real-time images of the kidneys were obtained. Comparison: Prior CT study of 09/07/20 which show the kidneys. Right kidney shows no hydronephrosis or mass. Left kidney shows a 1.9 cm cyst. Second cyst is noted on CT study which is not appreciated on this exam. No hydronephrosis or other abnormality is appreciated. Measurements: Right kidney: Length 9.5 cm Left kidney: Length: 9.2 cm. Resistive indices: Within normal limits Prevoid bladder volume is 63 mL. Patient was not awake enough to obtain a postvoid volume. Impression: 1. Cyst within the left kidney. Second cyst seen on CT study is not appreciated on this exam. 2. No additional abnormality is appreciated. Diagnostic code #2 --- Addendum1 signed ---
[2020-09-07] MEDS: Potassium Chloride 10 MEQ in Premix Bag 1 BAG IV SCH ×4 (19:26→23:10)
[2020-09-07] MEDS: Sodium Chloride 0.9% 1,000 ML IV SCH (20:33)
[2020-09-07] MEDS ORDERED: Heparin Sodium 5,000 Units/ML Vial SUBCUT SCH (21:00)
[2020-09-07] MEDS ORDERED: Tamsulosin 0.4 MG Cap.ER PO SCH (21:00)
--- NOTE | 2020-09-07 22:18 | PCM.SN.2 ---
- Free Text/Narrative Note: Patient's urinary catheter is not draining properly. Night nurse attempted to irrigate it but w/o any success. Consider changing jolly catheter and plan for CBI. Troponin continues to trend up. He may not be a good candidate for heparin gtt or lovenox ACS treatment since he is still has persistent gross hematuria.
[2020-09-07] MEDS ORDERED: Lidocaine 2% Jelly 10 ML Urojet ONE (22:33)
[2020-09-08] MEDS: Piperacillin/Tazobactam 4.5 GM in Sodium Chloride 0.9% 100 ML IV SCH ×2 (00:04→07:57)
[2020-09-08] MEDS: Heparin Sodium 5,000 Units/ML Vial SUBCUT SCH ×2 (00:05→06:41)
[2020-09-08] MEDS: Potassium Chloride 10 MEQ in Premix Bag 1 BAG IV SCH (05:00)
[2020-09-08] MEDS: Hydrocortisone Sodium Succinate 100 MG/2 ML SDV IVPUSH SCH (05:04)
[2020-09-08] MEDS: Sodium Chloride 0.9% 1,000 ML IV SCH (08:06)
[2020-09-08] MEDS ORDERED: Famotidine 20 MG/2 ML SDV IVPUSH SCH (09:00)
--- NOTE | 2020-09-08 09:05 | PCM.SN.2 ---
- Free Text/Narrative Note: Called [facility] with Dr. Garsia. After discussing case with him, he recommends patient transfer to them. [facility]ia will be under the services of Dr. Skinner, who accepts. Phoned in Zia's to let her know, he is going to [place] for urological services.
--- NOTE | 2020-09-08 09:36 | PCM.DCSUM1 ---
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 Diagnosis: Stroke: No Modified Shonda Scale: No Symptoms at All Modified Shonda Scale Score: 0 - Discharge Data Discharge Date: 09/08/20 Discharge Disposition: DC/Tfer to Acute Hospital 02 Condition: Stable - Referral to Home Health Primary Care Physician: Annemarie Baugh MD - Patient Summary/Data Operative Procedure(s) Performed: central line placement Complications: none Consults: Consultations 09/07/20 14:05 Consult to Case Management/Medical Biller/Coder [CONS] Routine Consult to Spiritual Care [CONS] Routine Respiratory Care Assess and Treatment [CONS] Routine Recommended Follow-up Testing/Procedures: urological eval Hospital Course: Patient was admitted for urosepsis. He was treated via sepsis protocal and broad spectrum antibiotics. However he failed volume resuscitation and therefore he was put on levophed gtt to improve his hemodynamics. Unfortunately, he continues to have acute urinary retention with gross hematuria which we felt was due to multiple failed attempts of urinary catheter insertion. He is otherwise stable at this point but he would need urology for further evaluation of acute urinary retention given his previous history of prostate cancer with surgical resection. Discussed case with Dr. Garsia, urologist and agreed to see him in consultation. He will be under the services of Dr. Skinner, Rehabilitation Therapist; who accepts. - Patient Instructions Diet: NPO Activity: Bedrest Driving: Do Not Drive Showering/Bathing: No Showering Wound/Incision Care: Keep Operative Site/Wound Site Clean and Dry Notify Provider of: Fever, Increased Pain, Swelling and Redness, Drainage, Nausea and/or Vomiting Other/Special Instructions: Transfer to [facility] in [place] for urological services. He will be under the services of Dr. Skinner, Rehabilitation Therapist. - Discharge Plan *PRESCRIPTION DRUG MONITORING PROGRAM REVIEWED*: Not Applicable *COPY OF PRESCRIPTION DRUG MONITORING REPORT IN PATIENT [place]: Not Applicable Home Medications: Home Meds Pantoprazole [ProTONIX] 40 mg PO DAILY 03/29/14 [History] Tamsulosin [Flomax] 0.4 mg PO BEDTIME 05/04/14 [History] Carbidopa/Levodopa [Sinemet 25-100 mg Tablet] 1 each PO BID 10/10/16 [History] Citalopram [Celexa] 20 mg PO 1200 10/10/16 [History] Donepezil [Aricept] 10 mg PO BEDTIME 10/10/16 [History] Bisacodyl [Dulcolax] 5 mg PO DAILY PRN #0 tablet 10/15/16 [Rx] Acetaminophen [Tylenol] 650 mg PO Q6H PRN #0 10/17/16 [Rx] Carbidopa/Levodopa [Carbidopa-Levodopa 25-100] 0.5 tab PO ACDINNER 09/07/20 [History] Cholecalciferol (Vitamin D3) [Vitamin D3] 1,000 unit PO DAILY 09/07/20 [History] Metoprolol Tartrate [Lopressor] 50 mg PO BID 09/07/20 [History] amLODIPine Besylate [Norvasc] 10 mg PO DAILY 09/07/20 [History] atorvaSTATin [Lipitor] 40 mg PO BEDTIME 09/07/20 [History] metFORMIN [Glucophage] 250 mg PO DAILY 09/07/20 [History] Oxygen Therapy Mode: Room Air Patient Handouts: Sepsis, Self Care, Adult - Discharge Summary/Plan Comment DC Time >30 min.: Yes Discharge Summary/Plan Comment: Transfer to under the services of Drs. Garsia and Brody - General Info Date of Service: 09/08/20 Admission Dx/Problem (Free Text: Admission Diagnosis/Problem Admission Diagnosis/Problem Urinary tract infection Subjective Update: ROS not able to obtain due to AMS Functional Status: Reports: Pain Controlled - Patient Data Vitals - Most Recent: Last Vital Signs Temp 36.7 C 09/08/20 07:00 Pulse 79 09/08/20 07:00 Resp 15 09/08/20 07:00 BP 109/53 L 09/08/20 07:00 Pulse Ox 91 L 09/08/20 07:00 Weight - Most Recent: 57.788 kg I&O - Last 24 hours: Intake & Output 09/07/20 09/08/20 09/08/20 22:59 06:59 14:59 Intake Total 2266 Output Total 15 0 Balance -15 6 Lab Results - Last 24 hrs: Laboratory Results - last 24 hr 09/07/20 09/07/20 09/07/20 Range/Units 01:25 07:21 07:21 WBC (4.23-9.07) K/mm3 RBC (4.63-6.08) M/mm3 Hgb (13.7-17.5) gm/dl Hct (40.1-51.0) % MCV (79.0-92.2) fl MCH (25.7-32.2) pg MCHC (32.2-35.5) g/dl RDW Std Deviation (35.1-43.9) fL Plt Count (163-337) K/mm3 MPV (9.4-12.3) fl Neut % (Auto) (34.0-67.9) % Lymph % (Auto) (21.8-53.1) % [place] % (Auto) (5.3-12.2) % Eos % (Auto) (0.8-7.0) Baso % (Auto) (0.1-1.2) % Neut # (Auto) (1.78-5.38) K/mm3 Lymph # (Auto) (1.32-3.57) K/mm3 [place] # (Auto) (0.30-0.82) K/mm3 Eos # (Auto) (0.04-0.54) K/mm3 Baso # (Auto) (0.01-0.08) K/mm3 Manual Slide Review Sodium (136-145) mEq/L Potassium (3.5-5.1) mEq/L Chloride (98-107) mEq/L Carbon Dioxide (21-32) mEq/L Anion Gap (5-15) BUN (7-18) mg/dL Creatinine (0.7-1.3) mg/dL Est Cr Clr Drug Dosing mL/min Estimated GFR (MDRD) (>60) mL/min BUN/Creatinine Ratio (14-18) Glucose (83-115) mg/dL POC Glucose (83-110) mg/dL Lactic Acid (0.4-2.0) mmol/L Calcium (8.5-10.1) mg/dL Phosphorus (2.6-4.7) mg/dL Magnesium (1.8-2.4) mg/dl Total Bilirubin (0.2-1.0) mg/dL AST (15-37) U/L ALT (16-63) U/L Alkaline Phosphatase (46-116) U/L Creatine Kinase (39-308) U/L Troponin I (0.00-0.056) ng/mL C-Reactive Protein (<1.0) mg/dL Total Protein (6.4-8.2) g/dl Albumin (3.4-5.0) g/dl Globulin gm/dL Albumin/Globulin Ratio (1-2) Triglycerides (<150) mg/dL Cholesterol (<200) mg/dL LDL Cholesterol Direct (<100) mg/dL HDL Cholesterol (40-59) mg/dL Prostate Specific Ag < 0.1 L (0.1-4.0) ng/mL Procalcitonin 0.06 ng/mL Ketones 0.57 (0.0-0.3) mM MRSA (PCR) 09/07/20 09/07/20 09/07/20 Range/Units 10:19 13:25 13:58 WBC (4.23-9.07) K/mm3 RBC (4.63-6.08) M/mm3 Hgb (13.7-17.5) gm/dl Hct (40.1-51.0) % MCV (79.0-92.2) fl MCH (25.7-32.2) pg MCHC (32.2-35.5) g/dl RDW Std Deviation (35.1-43.9) fL Plt Count (163-337) K/mm3 MPV (9.4-12.3) fl Neut % (Auto) (34.0-67.9) % Lymph % (Auto) (21.8-53.1) % Med[place] % (Auto) (5.3-12.2) % Eos % (Auto) (0.8-7.0) Baso % (Auto) (0.1-1.2) % Neut # (Auto) (1.78-5.38) K/mm3 Lymph # (Auto) (1.32-3.57) K/mm3 [place] # (Auto) (0.30-0.82) K/mm3 Eos # (Auto) (0.04-0.54) K/mm3 Baso # (Auto) (0.01-0.08) K/mm3 Manual Slide Review Sodium (136-145) mEq/L Potassium (3.5-5.1) mEq/L Chloride (98-107) mEq/L Carbon Dioxide (21-32) mEq/L Anion Gap (5-15) BUN (7-18) mg/dL Creatinine (0.7-1.3) mg/dL Est Cr Clr Drug Dosing mL/min Estimated GFR (MDRD) (>60) mL/min BUN/Creatinine Ratio (14-18) Glucose (83-115) mg/dL POC Glucose (83-110) mg/dL Lactic Acid 6.5 H* 6.5 H* (0.4-2.0) mmol/L Calcium (8.5-10.1) mg/dL Phosphorus (2.6-4.7) mg/dL Magnesium (1.8-2.4) mg/dl Total Bilirubin (0.2-1.0) mg/dL AST (15-37) U/L ALT (16-63) U/L Alkaline Phosphatase (46-116) U/L Creatine Kinase (39-308) U/L Troponin I (0.00-0.056) ng/mL C-Reactive Protein (<1.0) mg/dL Total Protein (6.4-8.2) g/dl Albumin (3.4-5.0) g/dl Globulin gm/dL Albumin/Globulin Ratio (1-2) Triglycerides (<150) mg/dL Cholesterol (<200) mg/dL LDL Cholesterol Direct (<100) mg/dL HDL Cholesterol (40-59) mg/dL Prostate Specific Ag (0.1-4.0) ng/mL Procalcitonin ng/mL Ketones (0.0-0.3) mM MRSA (PCR) Negative 09/07/20 09/07/20 09/07/20 Range/Units 16:20 17:04 18:08 WBC (4.23-9.07) K/mm3 RBC (4.63-6.08) M/mm3 Hgb (13.7-17.5) gm/dl Hct (40.1-51.0) % MCV (79.0-92.2) fl MCH (25.7-32.2) pg MCHC (32.2-35.5) g/dl RDW Std Deviation (35.1-43.9) fL Plt Count (163-337) K/mm3 MPV (9.4-12.3) fl Neut % (Auto) (34.0-67.9) % Lymph % (Auto) (21.8-53.1) % Med[place] % (Auto) (5.3-12.2) % Eos % (Auto) (0.8-7.0) Baso % (Auto) (0.1-1.2) % Neut # (Auto) (1.78-5.38) K/mm3 Lymph # (Auto) (1.32-3.57) K/mm3 [place] # (Auto) (0.30-0.82) K/mm3 Eos # (Auto) (0.04-0.54) K/mm3 Baso # (Auto) (0.01-0.08) K/mm3 Manual Slide Review Sodium 141 (136-145) mEq/L Potassium 3.1 L (3.5-5.1) mEq/L Chloride 108 H (98-107) mEq/L Carbon Dioxide 21 (21-32) mEq/L Anion Gap 15.1 H (5-15) BUN 24 H (7-18) mg/dL Creatinine 1.5 H (0.7-1.3) mg/dL Est Cr Clr Drug Dosing 30.40 mL/min Estimated GFR (MDRD) 45 (>60) mL/min BUN/Creatinine Ratio 16.0 (14-18) Glucose 213 H (83-115) mg/dL POC Glucose 178 H (83-110) mg/dL Lactic Acid 5.5 H* (0.4-2.0) mmol/L Calcium 7.6 L (8.5-10.1) mg/dL Phosphorus (2.6-4.7) mg/dL Magnesium (1.8-2.4) mg/dl Total Bilirubin (0.2-1.0) mg/dL AST (15-37) U/L ALT (16-63) U/L Alkaline Phosphatase (46-116) U/L Creatine Kinase 490 H (39-308) U/L Troponin I 0.353 H* (0.00-0.056) ng/mL C-Reactive Protein (<1.0) mg/dL Total Protein (6.4-8.2) g/dl Albumin (3.4-5.0) g/dl Globulin gm/dL Albumin/Globulin Ratio (1-2) Triglycerides (<150) mg/dL Cholesterol (<200) mg/dL LDL Cholesterol Direct (<100) mg/dL HDL Cholesterol (40-59) mg/dL Prostate Specific Ag (0.1-4.0) ng/mL Procalcitonin ng/mL Ketones (0.0-0.3) mM MRSA (PCR) 09/07/20 09/08/20 09/08/20 Range/Units 21:04 00:21 05:57 WBC (4.23-9.07) K/mm3 RBC (4.63-6.08) M/mm3 Hgb (13.7-17.5) gm/dl Hct (40.1-51.0) % MCV (79.0-92.2) fl MCH (25.7-32.2) pg MCHC (32.2-35.5) g/dl RDW Std Deviation (35.1-43.9) fL Plt Count (163-337) K/mm3 MPV (9.4-12.3) fl Neut % (Auto) (34.0-67.9) % Lymph % (Auto) (21.8-53.1) % [place] % (Auto) (5.3-12.2) % Eos % (Auto) (0.8-7.0) Baso % (Auto) (0.1-1.2) % Neut # (Auto) (1.78-5.38) K/mm3 Lymph # (Auto) (1.32-3.57) K/mm3 [place] # (Auto) (0.30-0.82) K/mm3 Eos # (Auto) (0.04-0.54) K/mm3 Baso # (Auto) (0.01-0.08) K/mm3 Manual Slide Review Sodium (136-145) mEq/L Potassium (3.5-5.1) mEq/L Chloride (98-107) mEq/L Carbon Dioxide (21-32) mEq/L Anion Gap (5-15) BUN (7-18) mg/dL Creatinine (0.7-1.3) mg/dL Est Cr Clr Drug Dosing mL/min Estimated GFR (MDRD) (>60) mL/min BUN/Creatinine Ratio (14-18) Glucose (83-115) mg/dL POC Glucose 147 H 149 H (83-110) mg/dL Lactic Acid (0.4-2.0) mmol/L Calcium (8.5-10.1) mg/dL Phosphorus (2.6-4.7) mg/dL Magnesium (1.8-2.4) mg/dl Total Bilirubin (0.2-1.0) mg/dL AST (15-37) U/L ALT (16-63) U/L Alkaline Phosphatase (46-116) U/L Creatine Kinase (39-308) U/L Troponin I 0.521 H* (0.00-0.056) ng/mL C-Reactive Protein (<1.0) mg/dL Total Protein (6.4-8.2) g/dl Albumin (3.4-5.0) g/dl Globulin gm/dL Albumin/Globulin Ratio (1-2) Triglycerides (<150) mg/dL Cholesterol (<200) mg/dL LDL Cholesterol Direct (<100) mg/dL HDL Cholesterol (40-59) mg/dL Prostate Specific Ag (0.1-4.0) ng/mL Procalcitonin ng/mL Ketones (0.0-0.3) mM MRSA (PCR) 09/08/20 09/08/20 09/08/20 Range/Units 06:06 06:06 07:43 WBC 36.78 H (4.23-9.07) K/mm3 RBC 3.48 L (4.63-6.08) M/mm3 Hgb 10.9 L D (13.7-17.5) gm/dl Hct 33.5 L (40.1-51.0) % MCV 96.3 H (79.0-92.2) fl MCH 31.3 (25.7-32.2) pg MCHC 32.5 (32.2-35.5) g/dl RDW Std Deviation 50.9 H (35.1-43.9) fL Plt Count 97 L (163-337) K/mm3 MPV 10.5 (9.4-12.3) fl Neut % (Auto) 87.3 H (34.0-67.9) % Lymph % (Auto) 1.6 L (21.8-53.1) % Med[place] % (Auto) 5.8 (5.3-12.2) % Eos % (Auto) 0 L (0.8-7.0) Baso % (Auto) 0.0 L (0.1-1.2) % Neut # (Auto) 32.09 H (1.78-5.38) K/mm3 Lymph # (Auto) 0.59 L (1.32-3.57) K/mm3 [place] # (Auto) 2.15 H (0.30-0.82) K/mm3 Eos # (Auto) 0.00 L (0.04-0.54) K/mm3 Baso # (Auto) 0.01 (0.01-0.08) K/mm3 Manual Slide Review Abnormal smear Sodium 144 (136-145) mEq/L Potassium 4.5 (3.5-5.1) mEq/L Chloride 111 H (98-107) mEq/L Carbon Dioxide 23 (21-32) mEq/L Anion Gap 14.5 (5-15) BUN 25 H (7-18) mg/dL Creatinine 1.2 (0.7-1.3) mg/dL Est Cr Clr Drug Dosing 38.12 mL/min Estimated GFR (MDRD) 58 (>60) mL/min BUN/Creatinine Ratio 20.8 H (14-18) Glucose 143 H (83-115) mg/dL POC Glucose (83-110) mg/dL Lactic Acid 2.5 H* (0.4-2.0) mmol/L Calcium 7.9 L (8.5-10.1) mg/dL Phosphorus 4.1 (2.6-4.7) mg/dL Magnesium 1.8 (1.8-2.4) mg/dl Total Bilirubin 0.7 (0.2-1.0) mg/dL AST 41 H (15-37) U/L ALT 49 (16-63) U/L Alkaline Phosphatase 52 (46-116) U/L Creatine Kinase (39-308) U/L Troponin I (0.00-0.056) ng/mL C-Reactive Protein 15.8 H* (<1.0) mg/dL Total Protein 5.2 L (6.4-8.2) g/dl Albumin 2.0 L (3.4-5.0) g/dl Globulin 3.2 gm/dL Albumin/Globulin Ratio 0.6 L (1-2) Triglycerides 39 (<150) mg/dL Cholesterol 98 (<200) mg/dL LDL Cholesterol Direct 31 (<100) mg/dL HDL Cholesterol 55.0 (40-59) mg/dL Prostate Specific Ag (0.1-4.0) ng/mL Procalcitonin ng/mL Ketones (0.0-0.3) mM MRSA (PCR) JOON Results - Last 24 hrs: Microbiology 09/07/20 08:00 Urine Culture - Preliminary Urine, Clean Catch Gram Negative Rods 09/07/20 07:37 Aerobic Blood Culture - Preliminary Blood - Venous - Lab Draw NO GROWTH AFTER 1 DAY Anaerobic Blood Culture - Preliminary Gram Negative Rods 09/07/20 07:21 Aerobic Blood Culture - Preliminary Blood - Venous NO GROWTH AFTER 1 DAY Anaerobic Blood Culture - Preliminary Gram Negative Rods Med Orders - Current: Current Medications Acetaminophen (Tylenol) 650 mg PO Q4H PRN PRN Reason: Pain (Mild 1-3)/fever Acetaminophen (Tylenol) 650 mg RECTAL Q4H PRN PRN Reason: Pain (mild 1-3) Albuterol/Ipratropium (Duoneb 3.0-0.5 Mg/3 Ml) 3 ml NEB Q4H PRN PRN Reason: Shortness Of Breath/wheezing Bisacodyl (Dulcolax) 5 mg PO DAILY PRN PRN Reason: Constipation Famotidine (Pepcid) 20 mg IVPUSH DAILY [facility] Last Admin: 09/08/20 08:06 Dose: 20 mg Documented by: Guaifenesin/Phenylephrine HCl (Robitussin Dm) 5 ml PO Q4H PRN PRN Reason: Cough Heparin Sodium (Porcine) (Heparin Sodium) 5,000 units SUBCUT Q8H [facility] Last Admin: 09/08/20 06:41 Dose: 5,000 units Documented by: Hydrocortisone Sodium Succinate (Solu-Cortef) 100 mg IVPUSH Q12H [facility] Last Admin: 09/08/20 05:04 Dose: 100 mg Documented by: Piperacillin Sod/Tazobactam (Sod 4.5 gm/ Sodium Chloride) 100 mls @ 25 mls/hr IV Q8H [facility] Last Admin: 09/08/20 07:57 Dose: 25 mls/hr Documented by: Vancomycin HCl 1 gm/ Sodium (Chloride) 250 mls @ 250 mls/hr IV Q24H [facility] Last Admin: 09/07/20 15:57 Dose: 250 mls/hr Documented by: Norepinephrine Bitartrate 4 mg (/ Dextrose/Water) 250 mls @ 7.5 mls/hr IV TITRATE [facility]; Protocol Last Titration: 09/08/20 04:00 Dose: 5 mcg/min, 18.75 mls/hr Documented by: Sodium Chloride (Normal Saline) 1,000 mls @ 125 mls/hr IV ASDIRECTED [facility] Last Admin: 09/08/20 08:06 Dose: 125 mls/hr Documented by: Insulin Human Lispro (Humalog) 0 unit SUBCUT Q6H [facility]; Protocol Last Admin: 09/08/20 06:10 Dose: Not Given Documented by: Olanzapine (Zyprexa) 2.5 mg IM Q6H PRN PRN Reason: sundowing/restlessness Last Admin: 09/07/20 23:10 Dose: 2.5 mg Documented by: Ondansetron HCl (Zofran) 4 mg IV Q6H PRN PRN Reason: Nausea/Vomiting Polyethylene Glycol (Miralax) 17 gm PO DAILY PRN PRN Reason: Constipation Senna/Docusate Sodium (Senna Plus) 1 tab PO BID PRN PRN Reason: Constipation Tamsulosin HCl (Flomax) 0.4 mg PO BEDTIME [facility] Last Admin: 09/07/20 22:57 Dose: Not Given Documented by: Vancomycin HCl (Pharmacy To Dose - Vancomycin) 1 dose .XX ASDIRECTED PRN PRN Reason: RX TO DOSE VANCO Discontinued Medications Acetaminophen (Tylenol) 650 mg RECTAL NOW ONE Stop: 09/07/20 07:02 Last Admin: 09/07/20 07:27 Dose: 650 mg Documented by: Heparin Sodium (Porcine) (Heparin Sodium) 5,000 units SUBCUT BID [facility] Dextrose/Sodium Chloride (Dextrose 5%-Normal Saline) 1,000 mls @ 999 mls/hr IV ASDIRECTED [facility] Last Admin: 09/07/20 07:37 Dose: 999 mls/hr Documented by: Ceftriaxone Sodium 2 gm/ (Sodium Chloride) 100 mls @ 200 mls/hr IV ONETIME ONE Stop: 09/07/20 07:33 Last Admin: 09/07/20 07:39 Dose: 200 mls/hr Documented by: Piperacillin Sod/Tazobactam (Sod 4.5 gm/ Sodium Chloride) 100 mls @ 200 mls/hr IV ONETIME ONE Stop: 09/07/20 08:18 Last Admin: 09/07/20 08:31 Dose: 200 mls/hr Documented by: Lactated Ringer's (Ringers, Lactated) 1,000 mls @ 500 mls/hr IV ASDIRECTED [facility] Last Admin: 09/07/20 09:15 Dose: 250 mls/hr Documented by: Sodium Chloride (Normal Saline) 1,000 mls @ 100 mls/hr IV ASDIRECTED [facility] Last Infusion: 09/07/20 17:09 Dose: 125 mls/hr Documented by: Magnesium Sulfate/Dextrose 1 (gm/ Premix) 100 mls @ 100 mls/hr IV ONETIME ONE Stop: 09/07/20 15:29 Last Admin: 09/07/20 15:57 Dose: 100 mls/hr Documented by: Potassium Chloride 10 meq/ (Premix) 100 mls @ 100 mls/hr IV Q1H [facility] Stop: 09/08/20 00:59 Last Admin: 09/08/20 05:00 Dose: 100 mls/hr Documented by: Iopamidol (Isovue-300 (61%)) 100 ml IVPUSH ONETIME ONE Stop: 09/07/20 08:09 Last Admin: 09/07/20 08:20 Dose: 100 ml Documented by: Lidocaine HCl (Xylocaine 2% Jelly) Confirm Administered Dose 10 ml .ROUTE .STK- MED ONE Stop: 09/07/20 22:34 Last Admin: 09/07/20 22:57 Dose: 10 ml Documented by: Lorazepam (Ativan) 1 mg IVPUSH ONETIME ONE Stop: 09/07/20 14:44 Last Admin: 09/07/20 14:47 Dose: 1 mg Documented by: Lorazepam (Ativan) 0.5 mg IVPUSH ONETIME ONE Stop: 09/07/20 15:41 Last Admin: 09/07/20 16:03 Dose: 0.5 mg Documented by: Lorazepam (Ativan) 1 mg IVPUSH ONETIME ONE Stop: 09/07/20 23:04 Last Admin: 09/07/20 23:20 Dose: 1 mg Documented by: Sodium Chloride (Saline Flush) 10 ml FLUSH ONETIME PRN PRN Reason: IV FLUSH Last Admin: 09/07/20 08:20 Dose: 10 ml Documented by: - Exam Quality Assessment: Reports: Supplemental Oxygen General: Reports: Lethargic HEENT: Reports: Pupils Equal, Pupils Reactive Neck: Reports: Supple Lungs: Reports: Normal Respiratory Effort, Decreased Breath Sounds Cardiovascular: Reports: Regular Rate, Regular Rhythm GI/Abdominal Exam: Normal Bowel Sounds, Soft, Non-Tender, No Organomegaly (Male) Exam: Urethral Discharge (hematuria) Rectal (Males) Exam: Deferred Extremities: No: Normal Inspection Skin: Reports: Warm, Intact Physical Findings Comments:: Physical exam is limited by AMS
[2020-09-08 10:01] VITALS: BP 116/59
[2020-09-08 10:50] VITALS: PULSE 90
== END 2020-09-08 10:59 | DRG 871 ==
LOC: JD.ED 06:23 → JD.MS 09:56 → JD.ICU 15:00
PROVIDERS: ADMIT Internal Medicine; ATTEND Internal Medicine
PROC: 3E043XZ Introduction of Vasopressor into Central Vein, Percutaneous Approach (ICD-10-PCS; principal; 2020-09-08)
PROC: 02HV33Z Insertion of Infusion Device into Superior Vena Cava, Percutaneous Approach (ICD-10-PCS; 2020-09-08)
DX: A41.9 Sepsis, unspecified organism (principal); R65.21 Severe sepsis with septic shock; J18.9 Pneumonia, unspecified organism; R77.8 Other specified abnormalities of plasma proteins; I50.9 Heart failure, unspecified; F03.90 Unspecified dementia, unspecified severity, without behavioral disturbance, psychotic disturbance, mood disturbance, and anxiety; G93.41 Metabolic encephalopathy; S52.612A Displaced fracture of left ulna styloid process, initial encounter for closed fracture; N39.0 Urinary tract infection, site not specified; N17.9 Acute kidney failure, unspecified; E87.2 Acidosis; H54.7 Unspecified visual loss; H91.90 Unspecified hearing loss, unspecified ear; I10 Essential (primary) hypertension; Z66 Do not resuscitate; E78.5 Hyperlipidemia, unspecified; I25.10 Atherosclerotic heart disease of native coronary artery without angina pectoris; Z95.1 Presence of aortocoronary bypass graft; I49.5 Sick sinus syndrome; Z95.0 Presence of cardiac pacemaker; K21.9 Gastro-esophageal reflux disease without esophagitis; N40.1 Benign prostatic hyperplasia with lower urinary tract symptoms; R33.8 Other retention of urine; Z86.73 Personal history of transient ischemic attack (TIA), and cerebral infarction without residual deficits; E11.9 Type 2 diabetes mellitus without complications; G20 Parkinson's disease; G30.9 Alzheimer's disease, unspecified; F02.80 Dementia in other diseases classified elsewhere, unspecified severity, without behavioral disturbance, psychotic disturbance, mood disturbance, and anxiety; Z79.84 Long term (current) use of oral hypoglycemic drugs; Z79.899 Other long term (current) drug therapy; E83.42 Hypomagnesemia; R31.0 Gross hematuria; Z85.46 Personal history of malignant neoplasm of prostate
CPT/HCPCS: 36415; 72170; 74177; 80053; 81001; 82009; 82533; 82977; 83036; 83605; 83690; 83735; 83880; 84145; 84153; 84484; 85007; 85027; 85610; 85652; 85730; 86140; 87040 ×2; 87077; 87086; 87088; 87186 ×2; 93005; 96365; 96367; 99285; A9270; J0696; J2543; J7042; J7050 ×2; J7120; Q9967; 51702; 51798; 76770; 76770-26; 80048; 80061; 82550; 82962; 84100; 85025; 87641; 93010; 93306; J1644; J1720; J2060; J3370; J3475; J3480; J3490; J7030; J7060